=== PATIENT | female | born 1935 | race Caucasian/White ===

== ENCOUNTER 2016-09-17 12:41 | Outpatient (CLI) | payer OTHER ==
[2016-09-17 12:51] LABS: BASOPHILS % (AUTO) 0.7 % (0.0-3.0); EOSINOPHILS # (AUTO) 0.3 K/ul (0.0-0.7); HEMATOCRIT 33.5 % (37.0-47.0); HEMOGLOBIN 10.5 g/dl (12.0-16.0); IMMATURE GRANULOCYTE % (AUTO) 0.3 % (0.0-5.0); LYMPHOCYTES # (AUTO) 1.8 K/uL (0.60-3.4); MEAN CORPUSCULAR HEMOGLOBIN 24.5 pg (27.0-31.0); MEAN CORPUSCULAR HGB CONC 31.3 (31.8-35.4); MEAN CORPUSCULAR VOLUME 78.1 fl (81.0-99.0); MONOCYTES # (AUTO) 0.6 K/uL (0.4-2.0); MONOCYTES % (AUTO) 10.3 (0-10); NEUTROPHILS # (AUTO) 3.3 K/ul (2.0-6.9); NEUTROPHILS % (AUTO) 54.7; PLATELET COUNT 404 10^3/uL (140-440); RED BLOOD COUNT 4.29 10^6/ul (4.20-5.40); WHITE BLOOD COUNT 6.03 K/ul (4.6-10.2)
[2016-09-17 13:14] LABS: ANION GAP 13.7; BUN/CREATININE RATIO 12.5; CREATININE 0.64 mg/dL (0.60-1.30); POTASSIUM 3.7 mmol/L (3.5-5.10)
== END 2016-09-17 12:42 | disposition home or self-care (01) ==
LOC: NONPT 12:41
PROVIDERS: ATTEND Family Medicine
DX: D64.9 Anemia, unspecified (principal); Z01.812 Encounter for preprocedural laboratory examination
CPT/HCPCS: 80048; 85025

== ENCOUNTER 2016-09-17 15:36 | Outpatient (CLI) | payer OTHER ==
--- NOTE | 2016-09-17 16:43 | DI ---
EXAM: Chest one view HISTORY: Surgical clearance COMPARISON: Ninth TECHNIQUE: Single view of the chest was performed FINDINGS: There is lucency at the right hemidiaphragm, may represent free air versus colonic interpo sition. The lungs are clear. There is no pleural effusion or pneumothorax. The heart is mildly enl arged and unchanged in size. The mediastinal contour is normal, noting atherosclerosis. There are no acute abnormalities of the bones. There is a chronic fracture deformity left humerus. IMPRESSION: 1. Possible free air versus colonic interposition. Recommend CT abdomen pelvis for further evaluat ion. 2. No acute cardiopulmonary process . 3. Fracture deformity left proximal humerus. Critical finding called to nurse Roman working with physician assistant Rizzo 4:35 p.m. 7
--- NOTE | 2016-09-18 06:41 | CT ---
EXAM: CT abdomen pelvis without intravenous contrast 09/17/2016. Sagittal and coronal reformatted images obtained. HISTORY: Possible free air COMPARISON: 09/17/2016 FINDINGS: The colon is located anterior to the superior aspect of the liver. This likely accounts for the abnormal finding on same day chest radiograph. There is no free air. The liver shows no acute abnormality. Multiple gallstones. The adrenal glands, kidneys and pancrea s show no acute process. The spleen shows no acute abnormality. There is no evidence of bowel obstruction. Unremarkable urinary bladder. No free air or free fluid. Atherosclerotic vascular disease. There are multiple severe compression fractures of the spine. Severe compression fracture is presen t at L3, L2, L1 and T11. No prior study for comparison. IMPRESSION: 1. The colon is located anterior to the liver and extends along the undersurface of the diaphragm. This likely accounts for the abnormal appearance on same day radiographs. There is no free air. 2. Gallstones. 3. No urinary or bowel obstruction. 4. Atherosclerotic vascular disease. 5. Multiple severe compression fractures of the lower thoracic and lumbar spine. No prior study fo r comparison. Further spinal imaging may be obtained as clinically indicated.
== END 2016-09-17 15:37 | disposition home or self-care (01) ==
LOC: RAD 15:36
PROVIDERS: ATTEND Family Medicine
DX: Z01.810 Encounter for preprocedural cardiovascular examination (principal); Z01.818 Encounter for other preprocedural examination; D64.9 Anemia, unspecified; Z01.812 Encounter for preprocedural laboratory examination
CPT/HCPCS: 80048; 85025; 93005; 93010

== ENCOUNTER 2017-05-18 00:44 | Emergency (ER) ==
[2017-05-18 00:58] VITALS: TEMP 97.7; BMI 24.4
--- NOTE | 2017-05-18 02:37 | CT ---
EXAM: CT head without contrast 05/18/2017. Sagittal and coronal reformatted images obtained HISTORY: Fall COMPARISON: 09/11/2016 FINDINGS: There is no evidence of intracranial hemorrhage. The midline is maintained. There is no h ydrocephalus. Generalized atrophy. Chronic small vessel ischemic changes. No cerebellar tonsillar ectopia. Evaluation of the calvarium shows no fracture. The mastoid air cells are normally pneumati zed. IMPRESSION: No acute intracranial abnormality.
--- NOTE | 2017-05-18 03:02 | DI ---
EXAM: Left shoulder, three views, 05/18/2017 HISTORY: Fall COMPARISON: 05/04/2016 FINDINGS / IMPRESSION: Old healed fractures present at the level of the humeral neck. Side plate and screw device is present within the distal humerus. The glenohumeral and acromioclavicular joint align normally. There is no evidence of acute fracture or dislocation.
--- NOTE | 2017-05-18 03:17 | CT ---
EXAM: CT cervical spine without intravenous contrast 05/18/2017. Sagittal and coronal reformatted i mages obtained HISTORY: Fall COMPARISON: 08/19/2014 FINDINGS: Abnormal alignment is present at the superior most aspect of the cervical spine most likel y due to suboptimal patient positioning. The head is rotated. Vertebral bodies of the cervical spine appear intact. There is no evidence of acute fracture or disl ocation. Multilevel chronic degenerative disc disease most severe at C4-C5. Anterior and posterior osteophyte formation is present. The facet joints align normally. The prevertebral soft tissues appear within normal limits. IMPRESSION: Abnormal alignment at the C1-C2 level is likely due to suboptimal positioning. The head is rotated. No acute fracture or dislocation identified within the cervical spine.
--- NOTE | 2017-05-18 03:45 | CT ---
EXAM: CT chest without intravenous contrast 05/18/2017. Sagittal and coronal reformatted images obt ained HISTORY: Fall COMPARISON: 09/17/2016, 05/18/2017, 09/17/2016 FINDINGS: The heart size appears at the upper limits of normal. No pericardial effusion. Multifocal bilateral atelectasis. There is no pulmonary consolidation, effusion or pneumothorax. Gallstones. There are multiple fractures within the thoracic and lumbar spine. As compared to abdominal CT 09/17 compression fractures of L3, L2, L1 and T11 appear stable. There is a compression fracture of T8 which appears new. Approximately 30% loss of vertebral body height. IMPRESSION: 1. Multifocal atelectasis. 2. Stable partial compression fractures of T11, L1, L2 and L3. 3. New compression fracture of T8 as compared to examination performed 09/17/2016. Approximately 30 % loss of vertebral body height.
--- NOTE | 2017-05-18 03:48 | ED.PDOC ---
General ED Provider: Dr. SHERICE OWENS-ER Chief Complaint: Fall Stated Complaint: found in floor at n.h. Time Seen by Physician: 00:50 Mode of Arrival: Ambulance Information Source: Patient, Family, Intermediate, EMT Exam Limitations: No limitations Primary Care Provider: KRISH TRIANA Nursing and Triage Documentation Reviewed and Agree: Yes Musculoskeletal Complaint Exam - Back Pain Complaint/Exam Mechanism of Injury: Reports: Trauma Onset/Duration: unknown Symptoms Are: Resolved Initial Severity: Mild Current Severity: Mild Character: Reports: Dull, Aching Associated Signs and Symptoms: Denies: Swelling, Redness, Bruising, Fever, Weakness, Numbness, Tingling, Abdominal pain, Flank pain, Bladder incontinence, Bowel incontinence, Weight loss, Pain with weight bearing Related History: Reports: Previous back injury AAA Risk Factors: Reports: None Cauda Equina Risk Factors: Reports: Bowel dysfunction Epidural Abcess Risk Factors: Reports: None Focal Tenderness: No Paraspinal Muscle Tenderness: No Paraspinal Muscle Spasm: No Scoliosis: No Lordosis: No Kyphosis: No SLR Test: Right Negative, Left Negative Hip Motion Testing Pain: Right Negative, Left Negative Focal Weakness: Present: None Focal Sensory Loss: Present: None Gait: Present: Normal Differential Diagnoses: Fracture, Herniated Disk, Strain, Sprain Review of Systems - Review Of Systems Constitutional: Reports: No symptoms Eyes: Reports: No symptoms Ears, Nose, Mouth, Throat: Reports: No symptoms Respiratory: Reports: No symptoms Cardiac: Reports: No symptoms GI: Reports: No symptoms : Reports: No symptoms Musculoskeletal: Reports: Back pain Skin: Reports: No symptoms Neurological: Reports: No symptoms Endocrine: Reports: No symptoms Hematologic/Lymphatic: Reports: No symptoms All Other Systems: Reviewed and Negative Past Medical History - Past Medical History Previously Healthy: No Endocrine: Reports: Unknown Cardiovascular: Reports: Unknown Respiratory: Reports: Unknown Hematological: Reports: Unknown Gastrointestinal: Reports: Unknown Genitourinary: Reports: Unknown Neuro/Psych: Reports: Unknown Musculoskeletal: Reports: Unknown Cancer: Reports: Unknown Last Menstrual Period: UNKNOWN - Surgical History General Surgical History: Reports: Unknown - Family History Family History: Reports: Unknown - Social History Smoking Status: Unknown if ever smoked Hx Substance Use: No Alcohol Screening: None Lives: With family - Immunizations Tetanus Shot up to Date: (UNKNOWN) Physical Exam - Physical Exam Appearance: Well-appearing, No pain distress, Well-nourished Pain Distress: Mild Eyes: MARTINA, EOMI, Conjunctiva clear ENT: Ears normal, Nose normal, Oropharynx normal Neck: Supple Respiratory: Airway patent, Breath sounds clear, Breath sounds equal, Respirations nonlabored Cardiovascular: RRR GI/: Soft, Nontender, No masses, Bowel sounds normal, No Organomegaly Musculoskeletal: Normal strength, ROM intact, No edema, No calf tenderness Skin: Warm Neurological: Sensation intact Psychiatric: Affect appropriate, Mood appropriate Critical Care Note - Critical Care Note Total Time (mins): 0 Course - Course Orders, Labs, Meds: Orders Category Date Time Status CT CERVICAL SPINE W/O CONTRAST Stat RADS 05/18/17 00:[address] CHEST W/O CONTRAST Stat RADS 05/18/17 00:[address] HEAD W/O CONTRAST Stat RADS 05/18/17 00:[address] LUMBAR SPINE W/O CONTRAST Stat RADS 05/18/17 00:[address] PELVIS W/O CONTRAST Stat RADS 05/18/17 00:[address] THORACIC SPINE W/O CONTRAST Stat RADS 05/18/17 00:46 Completed SHOULDER, LEFT MIN 2V Stat RADS 05/18/17 00:48 Completed Vital Signs: Temp Pulse Resp BP Pulse Ox 05/18/17 04:32 92 H 20 115/65 95 05/18/17 00:45 97.7 F 104 H 24 153/84 H 95 Departure - Departure Time of Disposition: 04:15 Disposition: TRANSFER SNF Discharge Problem: Multiple transverse process fractures Traumatic compression fracture of T8 thoracic vertebra Qualifiers: Encounter type: initial encounter Fracture type: closed Qualified Code(s): S22.060A - Wedge compression fracture of T7-T8 vertebra, initial encounter for closed fracture Instructions: Vertebral Compression Fracture (ED) Condition: Stable Pt referred to PMD for follow-up: Yes Additional Instructions: norco 7.5mg q 4hrs prn pain#30---hyperextension brace when awake--consider kyphoplasty if not tolerates Allergies/Adverse Reactions: Allergies Bleach (Sodium Hypochlorite) Adverse Reaction (Verified 05/18/17 02:27) orange juice Adverse Reaction (Verified 05/18/17 02:27) Penicillins Adverse Reaction (Verified 05/18/17 02:27) Home Medications: Ambulatory Orders Acetaminophen [Tylenol Extra Strength] 1,000 mg PO Q6H PRN 05/18/17 Albuterol Sulfate 0.083% Neb [Albuterol 0.083% Neb] 1 vial NEB RTQ6H PRN Calcium Carbonate [Tums] 200 mg PO Q4H PRN 05/18/17 Citalopram Hydrobromide [Celexa] 10 mg PO BEDTIME 05/18/17 Clonidine HCl 0.1 mg PO BID 05/18/17 Cyclobenzaprine HCl 5 mg PO Q8H PRN 05/18/17 Diltiazem HCl [Diltiazem 24Hr Cd] 180 mg PO DAILY 05/18/17 Ferrous Sulfate 325 mg PO BID 05/18/17 Furosemide 20 mg PO DAILY 05/18/17 Hydrocodone/Acetaminophen [Hydrocodon-Acetaminophen 5-325] 1 each PO Q4H PRN Magnesium Hydroxide [Milk of Magnesia] 30 ml PO DAILY PRN 05/18/17 Potassium Chloride 20 meq PO DAILY 05/18/17 Ranitidine HCl [Zantac] 150 mg PO BIDAC 05/18/17 Sennosides/Docusate Sodium [Senna-S Tablet] 1 each PO DAILY 05/18/17 Transfer Form Completed: Yes Disposition Discussed With: Family
--- NOTE | 2017-05-18 03:49 | CT ---
EXAM: CT thoracic spine without intravenous contrast 05/18/2017. Sagittal and coronal reformatted i mages obtained HISTORY: Fall COMPARISON: 05/18/2017, 09/17/2016 FINDINGS: There are multiple chronic fractures within the lower thoracic and lumbar spine. Chronic s table fractures are present at T11, L1, L2 and L3. As compared to the prior CT performed 09/17/2016 there is a new fracture at the T8 level. Jagged debbie ency traverses the level of T8. Approximately 30% loss of vertebral body height. No retropulsed bon y fragments. Posterior elements appear intact. IMPRESSION: 1. New partial compression fracture of T8. This is new as compared to 09/17/2016. Approximately 30 % loss of vertebral body height. 2. Additional chronic fracture sites as described above.
--- NOTE | 2017-05-18 04:11 | CT ---
EXAM: CT lumbar spine without intravenous contrast 05/18/2017. Sagittal and coronal reformatted orion ges obtained HISTORY: Fall COMPARISON: 09/17/2016 FINDINGS: Anatomic alignment is unchanged. Partial loss of vertebral body height is present within a ll lumbar vertebral bodies. Severe compression fractures are present at L1, L2 and L3. These fractu re sites all appear unchanged as compared to abdominal CT performed 09/17/2016. Nondisplaced fracture is present within the right transverse process of L2, L3 and L4. These finding s are new since the prior study. There is no new lumbar fracture identified. Chronic degenerative disc disease. Chronic multilevel h ypertrophic facet arthropathy. Severe compression fracture at T11 is also stable. There is a new compression fracture T8. IMPRESSION: 1. Multiple severe compression fractures of the thoracic and lumbar spine. Compression fracture of the L1, L2 and L3 vertebral bodies appear stable. 2. There are new nondisplaced transverse process fractures at the right aspect of L2, L3 and L4. 3. There is also a new compression fracture of T8 which has been described on same day CT thoracic s pine.
--- NOTE | 2017-05-18 04:13 | CT ---
EXAM: CT pelvis without intravenous contrast 05/18/2017. Sagittal and coronal reformatted images ob tained HISTORY: 09/17/2016 COMPARISON: Fall FINDINGS: The osseous structures of the pelvis appear demineralized. The sacrum appears intact with out fracture. The bony pelvis appears intact without evidence of fracture. The right and left hip align normally. The proximal femurs appear intact. IMPRESSION: No acute post traumatic osseous abnormality of the pelvis.
[2017-05-18 04:33] VITALS: BP 115/65
== END 2017-05-18 04:35 ==
LOC: ED 00:44
DX: S22.060A Wedge compression fracture of T7-T8 vertebra, initial encounter for closed fracture (principal); S32.029A Unspecified fracture of second lumbar vertebra, initial encounter for closed fracture; S32.039A Unspecified fracture of third lumbar vertebra, initial encounter for closed fracture; S32.049A Unspecified fracture of fourth lumbar vertebra, initial encounter for closed fracture; M25.512 Pain in left shoulder; F03.90 Unspecified dementia, unspecified severity, without behavioral disturbance, psychotic disturbance, mood disturbance, and anxiety; S32.010D Wedge compression fracture of first lumbar vertebra, subsequent encounter for fracture with routine healing; S32.020D Wedge compression fracture of second lumbar vertebra, subsequent encounter for fracture with routine healing; S32.030D Wedge compression fracture of third lumbar vertebra, subsequent encounter for fracture with routine healing; S22.080D Wedge compression fracture of T11-T12 vertebra, subsequent encounter for fracture with routine healing; W19.XXXA Unspecified fall, initial encounter; Y92.129 Unspecified place in nursing home as the place of occurrence of the external cause; Z79.899 Other long term (current) drug therapy
CPT/HCPCS: 99283

== ENCOUNTER 2017-05-23 21:39 | Emergency (ER) ==
[2017-05-23 21:39] VITALS: BMI 24.4
[2017-05-23 21:46] VITALS: BP 139/73; TEMP 98.3
--- NOTE | 2017-05-23 22:03 | ED.PDOC ---
General ED Provider: Dr. NOLA VELAZQUEZ Chief Complaint: Fall Stated Complaint: Patient has had multiple falls recently with fracture of the spine. Has a brace that she wears. Today went to get up and fell again. Now complain of lower back pain. Happened an hour ago. Time Seen by Physician: 22:02 Mode of Arrival: Ambulance Information Source: Patient, EMT Exam Limitations: No limitations Nursing and Triage Documentation Reviewed and Agree: Yes Trauma/Injury Complaint Exam - Trauma Complaint/Exam Location of Pain or Injury: Reports: Back Mechanism of Injury: Reports: Fall Onset/Duration: 1 hour Symptoms Are: Still present Timing of Treatment: Immediate Initial Severity: Mild Current Severity: Moderate Character: Reports: Aching Aggravating: Reports: Movement Associated Signs and Symptoms: Denies: LOC, Confusion, Memory loss, Lethargy, Vomiting, Bleeding, Bruising, Swelling, Extremity disuse, Painful respiration, Hoarseness, Dysphagia, Hemoptysis, Significant blood loss Nexus Low Risk Criteria: No post-midline CS tender, No evidence of intoxicat., No Altered LOC, No focal neuro deficit, No distracting injuries Trauma Findings: Present: Back tenderness (lumbar area ), Limited ROM. Absent: [place] eyes, Hemotympanum, Nasal deformity, Dental tenderness, Dental injury, SubQ Air, Crepitus, Airway obstructed, Trachea displaced, Pelvic tenderness Skin Findings: Present: Normal findings Differential Diagnoses: Fracture, Sprain, Strain Body Picture: 1 - tendermess to palpation. Review of Systems - Review Of Systems Constitutional: Reports: No symptoms Musculoskeletal: Reports: Back pain, Muscle pain, Muscle stiffness Neurological: Reports: Anxiety All Other Systems: Other (limited due to dementia) Past Medical History - Past Medical History Previously Healthy: No Endocrine: Reports: None Cardiovascular: Reports: Hypertension Respiratory: Reports: None Hematological: Reports: None Gastrointestinal: Reports: GERD Genitourinary: Reports: None Neuro/Psych: Reports: Schizophrenia, Dementia, Other (OCD ) Musculoskeletal: Reports: Arthritis, Back Pain Cancer: Reports: Unknown Last Menstrual Period: unknown - Surgical History General Surgical History: Reports: Unknown - Family History Family History: Reports: Unknown - Social History Smoking Status: Unknown if ever smoked Hx Substance Use: No Alcohol Screening: None - Immunizations Tetanus Shot up to Date: Yes Physical Exam - Physical Exam Appearance: Ill-appearing, Well-nourished Ill-appearing: Mild Pain Distress: Severe Eyes: MARTINA, EOMI, Conjunctiva clear ENT: Ears normal, Nose normal, Oropharynx normal Neck: Supple Respiratory: Airway patent, Breath sounds clear, Breath sounds equal, Respirations nonlabored Cardiovascular: RRR, Pulses normal, No rub, No murmur GI/: Soft, Nontender, No masses, Bowel sounds normal, No Organomegaly Musculoskeletal: Normal strength, No edema, No calf tenderness, Limited ROM Skin: Warm, Dry, Normal color Neurological: Sensation intact, Motor intact, Reflexes intact, Cranial nerves intact, Alert, Oriented Psychiatric: Affect appropriate, Mood appropriate Interpretation - Radiology Interpretation Radiology Interpretation By: Radiologist Radiology Results: No acute changes (stable fractures) Exam Interpreted: CT Scan Critical Care Note - Critical Care Note Total Time (mins): 0 Course - Course Orders, Labs, Meds: Orders Category Date Time Status Morphine Sulfate [Morphine 2 mg/ml Syringe] MEDS 05/23/17 22:23 Discontinued 2 mg IM ONCE STA Ondansetron [Zofran Odt] MEDS 05/23/17 22:23 Discontinued 4 mg PO ONCE STA CT CERVICAL SPINE W/O CONTRAST Stat RADS 05/23/17 21:[address] HEAD W/O CONTRAST Stat RADS 05/23/17 21:[address] LUMBAR SPINE W/O CONTRAST Stat RADS 05/23/17 21:[address] PELVIS W/O CONTRAST Stat RADS 05/23/17 21:[address] THORACIC SPINE W/O CONTRAST Stat RADS 05/23/17 21:42 Completed Medications Discontinued Medications Generic Name Dose Route Start Last Admin Trade Name Freq PRN Reason Stop Dose Admin Morphine Sulfate 2 mg 05/23/17 22:23 05/23/17 22:34 Morphine 2 Mg/Ml Syringe IM 05/23/17 22:24 2 mg ONCE STA Administration Ondansetron HCl 4 mg 05/23/17 22:23 05/23/17 22:34 Zofran Odt PO 05/23/17 22:24 4 mg ONCE STA Administration Vital Signs: Temp Pulse Resp BP Pulse Ox 05/23/17 21:39 98.3 F 105 H 20 139/73 95 Departure - Departure Time of Disposition: 22:59 Disposition: HOME SELF-CARE Discharge Problem: Falls, Back pain due to injury Instructions: Acute Low Back Pain (ED), Back Pain (ED) Condition: Fair Pt referred to PMD for follow-up: Yes Additional Instructions: Continue home medications for pain Follow up with PCPin 3 days Allergies/Adverse Reactions: Allergies Bleach (Sodium Hypochlorite) Adverse Reaction (Verified 05/23/17 21:47) orange juice Adverse Reaction (Verified 05/23/17 21:47) Penicillins Adverse Reaction (Verified 05/23/17 21:47) Home Medications: Ambulatory Orders Acetaminophen [Tylenol Extra Strength] 1,000 mg PO Q6H PRN 05/18/17 Albuterol Sulfate 0.083% Neb [Albuterol 0.083% Neb] 1 vial NEB RTQ6H PRN Calcium Carbonate [Tums] 200 mg PO Q4H PRN 05/18/17 Citalopram Hydrobromide [Celexa] 10 mg PO BEDTIME 05/18/17 Clonidine HCl 0.1 mg PO BID 05/18/17 Cyclobenzaprine HCl 5 mg PO BID 05/18/17 Diltiazem HCl [Diltiazem 24Hr Cd] 180 mg PO DAILY 05/18/17 Ferrous Sulfate 325 mg PO BID 05/18/17 Furosemide 20 mg PO DAILY 05/18/17 Hydrocodone/Acetaminophen [Hydrocodon-Acetaminophen 5-325] 1 each PO Q4H PRN Magnesium Hydroxide [Milk of Magnesia] 30 ml PO DAILY PRN 05/18/17 Potassium Chloride 20 meq PO DAILY 05/18/17 Ranitidine HCl [Zantac] 150 mg PO BIDAC 05/18/17 Sennosides/Docusate Sodium [Senna-S Tablet] 1 each PO DAILY 05/18/17
[2017-05-23] MEDS ORDERED: ZOFRAN ODT PO STA (22:23)
[2017-05-23] MEDS ORDERED: MORPHINE 2 MG/ML SYRINGE IM STA (22:23)
--- NOTE | 2017-05-23 22:31 | CT ---
EXAM: CT brain without contrast HISTORY: Fall with injury and pain TECHNIQUE: CT of the brain without intravenous contrast FINDINGS: There is no acute hemorrhage midline shift or mass effect. No hydrocephalus or abnormal e xtra-axial fluid collection. Generalized involutional atrophy, moderate. Chronic microvascular pelayo ges white matter tracts, moderate. No acute large vessel territorial infarct is seen. The bony cran ium appears normal. The visualized paranasal sinuses are clear. Soft tissues without significant abno rmality. IMPRESSION: 1. Chronic changes as described. No acute intracranial abnormality is seen.
--- NOTE | 2017-05-23 22:32 | CT ---
CT cervical spine without contrast HISTORY: Fall with injury and pain TECHNIQUE: CT of the cervical spine with multiplanar reformations. FINDINGS: Reformatted images demonstrate normal alignment with preservation of vertebral body height . Focal disc space narrowing and endplate spondylosis at C4-5. No fracture seen on the axial or refo rmatted images. No acute surrounding soft tissue abnormalitites. Lung apices are clear. IMPRESSION: No acute findings in the cervical spine.
--- NOTE | 2017-05-23 22:44 | CT ---
EXAM: CT scan thoracic spine HISTORY: Fall COMPARISON: CT scan thoracic spine 05/18/2017 FINDINGS: Contiguous axial images obtained through the thoracic spine utilizing 3-mm collimation. S agittal and coronal reconstructions were imaged and reviewed.. There is moderate generalized deminer alization. Chronic compression deformities are noted at T11 , L1, L2 and L3. There is an acute/subac [place] fracture involving the T8 vertebral body IMPRESSION: Stable acute compression deformity involving T8 with multiple chronic compression deformities as desc ribed
--- NOTE | 2017-05-23 22:47 | CT ---
Exam: CT lumbar spine without contrast History: Fall with injury and pain Technique: [address] lumbar spine with multiplanar reformations FINDINGS: Compared with 05/18/2017. Again, multilevel high-grade compression fractures and T11, L1, L2, L3. Low grade compression fracture of L5. Transverse process fractures of L1, L2 and L3 again noted. The sacrum is intact. The bones are demineralized. Impression: 1. No interval change from 05/18/2017. High-grade compression fractures of L1, L2 and L3. Stable L 3 retropulsion. No new fractures.
--- NOTE | 2017-05-23 22:48 | CT ---
EXAM: CT scan pelvis without contrast HISTORY: Fall COMPARISON: CT scan pelvis 05/18/2016 FINDINGS: Contiguous axial images were obtained through the pelvis without contrast utilizing 3-mm c ollimation. Sagittal and coronal reconstructions were imaged and reviewed... The hip joints and SI joints are intact. There is no acute fracture or dislocation. There is a Barry catheter in the bladde r which contains air which is likely iatrogenic in nature. IMPRESSION: No acute findings.
== END 2017-05-23 23:58 | disposition home or self-care (01) ==
LOC: ED 21:39
DX: R29.6 Repeated falls (principal); M54.5 Low back pain; W19.XXXA Unspecified fall, initial encounter; S22.069D Unspecified fracture of T7-T8 vertebra, subsequent encounter for fracture with routine healing; M81.0 Age-related osteoporosis without current pathological fracture; F03.90 Unspecified dementia, unspecified severity, without behavioral disturbance, psychotic disturbance, mood disturbance, and anxiety
CPT/HCPCS: 96372; 99283

== ENCOUNTER 2017-07-17 13:23 | Outpatient (CLI) ==
[2017-07-17 13:40] LABS: BILIRUBIN,URINE Negative (NEGATIVE); KETONES,URINE Negative (NEGATIVE); LEUKOCYTE ESTERASE ,URINE 3+ (NEGATIVE); NITRITE,URINE Negative (NEGATIVE); PH,URINE 7.5 (5-9); PROTEIN,URINE Negative (NEGATIVE); URINE, BLOOD Negative (NEGATIVE)
[2017-07-17 14:00] LABS: ADD URINE MICROSCOPIC YES
[2017-07-17 14:04] LABS: BACTERIA,URINE 1+ (NOT PRESENT)
== END 2017-07-17 13:24 | disposition home or self-care (01) ==
LOC: NONPT 13:23
PROVIDERS: ATTEND Family Medicine
DX: R69 Illness, unspecified (principal)
CPT/HCPCS: 81001; 87086

== ENCOUNTER 2017-07-19 13:40 | Outpatient (CLI) ==
--- NOTE | 2017-07-19 14:36 | CT ---
Exam: CT of the cervical spine without intravenous contrast. Comparison: 05/23/2017. Reason for exam: Increased pain. FINDINGS: Linear lucency through the base of the C2 vertebral body likely represents a type 3 dens f racture. There is a fractures of the posterior arch of C2 consistent with a hangman's fracture. There is similar appearing degenerative disease with intervertebral body disc space height narrowing most notably at C4-C5. There is similar appearing straightening of the cervical lordotic curve. The prev ertebral soft tissues are within normal limits. There is diffuse osseous demineralization. Impression: 1. Unexpected finding. Imaging findings are most consistent with a type 3 dens fracture and a hangm an's fracture. 2. Moderate to severe degenerative disease with intervertebral body disc space height narrowing and diffuse osseous demineralization. Imaging findings were discussed directly with at at 1430 hours on 07/19/2017. The report was faxed at the same time.
== END 2017-07-19 13:41 | disposition home or self-care (01) ==
LOC: RAD 13:40
PROVIDERS: ATTEND Family Medicine
DX: M54.2 Cervicalgia (principal)

== ENCOUNTER 2017-11-07 12:04 | Outpatient (CLI) | END 2017-11-07 12:05 | disposition short-term general hospital (02) | LOC: AMBL 12:04 | PROVIDERS: ATTEND Emergency Medicine | DX: S49.92XA Unspecified injury of left shoulder and upper arm, initial encounter (principal); W19.XXXA Unspecified fall, initial encounter; Y92.129 Unspecified place in nursing home as the place of occurrence of the external cause ==

== ENCOUNTER 2017-11-15 11:56 | Outpatient (CLI) | END 2017-11-15 11:57 | disposition home or self-care (01) | LOC: NONPT 11:56 | PROVIDERS: ATTEND Family Medicine | DX: R05 Cough (principal); R68.89 Other general symptoms and signs | CPT/HCPCS: 87502 ==

== ENCOUNTER 2017-12-21 19:43 | Emergency (ER) | payer OTHER ==
[2017-12-21 20:10] VITALS: BP 148/72; TEMP 98; BMI 22.9
--- NOTE | 2017-12-21 20:16 | ED.PDOC ---
General ED Provider: Dr. JEOVANNY SUE Chief Complaint: Fall Stated Complaint: sent from the [place] for the fall and injuring head and neck, on the bed, does not c/o pain in heack or head. Time Seen by Physician: 20:15 Information Source: Patient, Family, Senior Care, EMT Nursing and Triage Documentation Reviewed and Agree: Yes Reviewed sepsis parameters & appropriate labs ordered?: No System Inflammatory Response Syndrome: Not Applicable Sepsis Protocol: For patient's 13 years and over: Temp is 96.8 and below OR 101 and greater Pulse >90 BPM Resp >20/minute Acutely Altered Mental Status Are patient's symptoms suggestive of a new infection, such as: -Pneumonia -Skin, Soft Tissue -Endocarditis -UTI -Bone, Joint Infection -Implantable Device -Acute Abdominal Infection -Wound Infection -Meningitis -Blood Stream Catheter Infection -Unknown Musculoskeletal Complaint Exam - Neck Pain Complaint/Exam Mechanism of Injury: Reports: Trauma Symptoms Are: Still present Timing: Constant Episodes Lasting: Minutes Initial Severity: Moderate Current Severity: Moderate Location: Reports: Discrete Character: Reports: Aching, Throbbing Aggravating: Reports: Movement Alleviating: Reports: None Associated Signs and Symptoms: Denies: Swelling, Redness, Bruising, Fever, Nuchal rigidity, Weakness, Headache, Paresthesia Related History: Reports: Similar episode Meningitis Risk Factors: Reports: None Cervical Spine Injury Risk Factors: Reports: None Related Surgical History: Reports: None Carotid Bruit Present: No Pain on Passive Flexion: No Positive Kernig's Sign: No ROM Limited In: Present: Flexion, Extension Tenderness: Present: Midline, Paraspinal Focal Weakness: Present: None Focal Sensory Loss: Reports: None Differential Diagnoses: Cervical Fracture, Intracranial Bleed, Sprain Review of Systems - Review Of Systems Constitutional: Reports: No symptoms Eyes: Reports: No symptoms Ears, Nose, Mouth, Throat: Reports: No symptoms Respiratory: Reports: No symptoms Cardiac: Reports: No symptoms GI: Reports: No symptoms : Reports: No symptoms Musculoskeletal: Reports: Neck pain Skin: Reports: No symptoms Neurological: Reports: Headache Endocrine: Reports: No symptoms Hematologic/Lymphatic: Reports: No symptoms All Other Systems: Reviewed and Negative Past Medical History - Past Medical History Previously Healthy: No Endocrine: Reports: None Cardiovascular: Reports: Hypertension Respiratory: Reports: None Hematological: Reports: None Gastrointestinal: Reports: GERD Genitourinary: Reports: None Neuro/Psych: Reports: Schizophrenia, Dementia, Other (OCD ) Musculoskeletal: Reports: Arthritis, Back Pain Cancer: Reports: Unknown Last Menstrual Period: UNKNOWN Other Pertinent Past Medical History: OCD,OSTEOARTHRITIS,DEMENTIA,DYSPHAGIA, CHRONIC BACK ISSUES, - Surgical History General Surgical History: Reports: Unknown - Family History Family History: Reports: Unknown - Social History Smoking Status: Unknown if ever smoked Hx Substance Use: No Alcohol Screening: None Physical Exam - Physical Exam Appearance: Well-appearing Eyes: MARTINA, EOMI, Conjunctiva clear ENT: Ears normal, Nose normal, Oropharynx normal Respiratory: Airway patent, Breath sounds clear, Breath sounds equal, Respirations nonlabored Cardiovascular: RRR, Pulses normal, No rub, No murmur GI/: Soft, Nontender, No masses, Bowel sounds normal, No Organomegaly Musculoskeletal: ROM intact, No edema, No calf tenderness, Limited ROM Skin: Warm, Dry, Normal color Neurological: Sensation intact, Motor intact, Reflexes intact, Cranial nerves intact, Alert, Oriented Psychiatric: Affect appropriate, Mood appropriate Interpretation - Radiology Interpretation Radiology Interpretation By: Radiologist Radiology Results: Positive (CHRONIC CAHNGES) Exam Interpreted: CT Scan Critical Care Note - Critical Care Note Total Time (mins): 25 Course - Course Orders, Labs, Meds: Orders Category Date Time Status CT CERVICAL SPINE W/O CONTRAST Stat RADS 12/21/17 20:[address] HEAD W/O CONTRAST Stat RADS 12/21/17 20:13 Completed Vital Signs: Temp Pulse Resp BP Pulse Ox 12/21/17 19:48 98 F 74 20 148/72 H 98 Departure - Departure Time of Disposition: 21:13 Disposition: HOME SELF-CARE Discharge Problem: Fracture of C2 vertebra, closed Qualifiers: Encounter type: subsequent encounter Fracture morphology: unspecified fracture morphology Fracture alignment: nondisplaced Fracture healing: with delayed healing Qualified Code(s): S12.101G - Unspecified nondisplaced fracture of second cervical vertebra, subsequent encounter for fracture with delayed healing Instructions: Fall Prevention for Older Adults (ED) Condition: Stable Pt referred to PMD for follow-up: Yes IPMP verified?: No Additional Instructions: Patient has high risk for the falls. f/u at [facility] rounds Allergies/Adverse Reactions: Allergies Bleach (Sodium Hypochlorite) Adverse Reaction (Verified 12/21/17 20:10) orange juice Adverse Reaction (Verified 12/21/17 20:10) Penicillins Adverse Reaction (Verified 12/21/17 20:10) Home Medications: Ambulatory Orders Acetaminophen [Tylenol Extra Strength] 1,000 mg PO Q6H PRN 05/18/17 Albuterol Sulfate 0.083% Neb [Albuterol 0.083% Neb] 1 vial NEB RTQ6H PRN Calcium Carbonate [Tums] 200 mg PO Q4H PRN 05/18/17 Citalopram Hydrobromide [Celexa] 10 mg PO BEDTIME 05/18/17 Clonidine HCl 0.1 mg PO BID 05/18/17 Cyclobenzaprine HCl 5 mg PO Q12H PRN 05/18/17 Diltiazem HCl [Diltiazem 24Hr Cd] 180 mg PO DAILY 05/18/17 Ferrous Sulfate 325 mg PO BID 05/18/17 Furosemide 20 mg PO BID 05/18/17 Magnesium Hydroxide [Milk of Magnesia] 30 ml PO DAILY PRN 05/18/17 Potassium Chloride 20 meq PO DAILY 05/18/17 Ranitidine HCl [Zantac] 150 mg PO BIDAC 05/18/17 Sennosides/Docusate Sodium [Senna-S Tablet] 1 each PO DAILY 05/18/17 Baclofen 10 mg PO Q8H PRN 12/21/17 Guaifenesin 400 mg PO Q12H PRN 12/21/17 Hydrocodone Bit/Acetaminophen [[place] 7.5-325] 1 tab PO Q8H PRN 12/21/17 Disposition Discussed With: Patient, Family
--- NOTE | 2017-12-21 20:51 | CT ---
EXAM: CT of the head without contrast. HISTORY: Fall. Prior CT fracture.. COMPARISON: 07/19/2017 TECHNIQUE: Contiguous axial images at 5 mm intervals were obtained from the base of the skull to the vertex the calvarium. No contrast was given. FINDINGS: The CSF containing spaces are diffusely enlarged consistent with atrophy. There are no ex traaxial fluid collections. There is no evidence of an acute intracranial hemorrhage. There are no masses or mass effect. Hypodensities are seen in the periventricular white matter consistent with ch ronic ischemic changes from small vessel disease. There are no acute vascular territory infarcts. Carotid artery and vertebral artery calcifications are seen. The osseous structures are normal. The re is a lucency through C2 on the right extending through the lateral lateral mass. This is not enti rely imaged on the study but appears similar to the previous study dated 07/19/2017 The extracranial soft tissues are otherwise unremarkable. IMPRESSION: 1. Fracture through the lateral mass on the right at C2 and probable fracture of the left os CT. A similar appearance was seen on CT of the cervical spine dated 07/19/2017. Correlate with CT of the c ervical spine. 2. Chronic age-related changes. No acute intracranial abnormalities.
--- NOTE | 2017-12-21 21:04 | CT ---
Exam. CT of cervical spine without contrast History. Post fall, injury Comparison. 07/19/2017 Technique Axial scans acquired at 2 mm slice thicknesses. MPR coronal and sagittal sequences completed FINDINGS Patient was positioned asymmetrically in the CT gantry Sagittal sequence shows normal alignment of the facet joints and vertebral bodies. There is narrowin g of the C4-C5, C5-C6 intervertebral disc space. The odontoid is intact. However there is a fractur e involving the right body/pedicle of C2. There is an additional fracture involving the left pedicle of C2 C3-C7 vertebra appear intact There is no acute disc protrusion. There is no obvious cord contusion or hematoma. Impression 1. There is a fracture of C2 as described similar compared previous CT of 07/19/2017. Fracture lines are still apparent with nonunion 2. Alignment facet joints and vertebral bodies normal. 3. Degenerate disc disease C4-C5 and the C5-C6 level. There is a moderate right C4-C5 and moderate left C5-C6 foraminal stenosis. If more detailed assessment of neural structures is clinically indicated consider follow-up non emerg ent MRI Results discussed with ER nursing staff Mary . Faxed report sent.
== END 2017-12-21 21:45 | disposition home or self-care (01) ==
LOC: ED 19:43
DX: S09.90XA Unspecified injury of head, initial encounter (principal); S12.101G Unspecified nondisplaced fracture of second cervical vertebra, subsequent encounter for fracture with delayed healing; W19.XXXA Unspecified fall, initial encounter; Y92.129 Unspecified place in nursing home as the place of occurrence of the external cause; M25.512 Pain in left shoulder
CPT/HCPCS: 99283

== ENCOUNTER 2017-12-30 09:29 | Outpatient (CLI) | END 2017-12-30 09:30 | disposition home or self-care (01) | LOC: NONPT 09:29 | PROVIDERS: ATTEND Emergency Medicine | DX: Z51.81 Encounter for therapeutic drug level monitoring (principal); Z79.899 Other long term (current) drug therapy | CPT/HCPCS: 80053 ==

== ENCOUNTER 2018-01-07 13:06 | Inpatient (IN) | payer OTHER ==
--- NOTE | 2018-01-07 14:10 | ED.PDOC ---
General ED Provider: Dr. SHERICE POSEY Chief Complaint: Chest Pain Stated Complaint: Having shoulder pain radiating to the chest. Apparently patient refused and [facility] nurses sent patient in for evaluation per recommendation of Dr Sevilla. Time Seen by Physician: 13:50 Mode of Arrival: Walk-In Information Source: Family, Group Home, EMT Exam Limitations: Clinical condition [facility] and T[facility] Documentation Reviewed and Agree: Yes Reviewed sepsis parameters & appropriate labs ordered?: Yes System Inflammatory Response Syndrome: Not Applicable Sepsis Protocol: For patient's 13 years and over: Temp is 96.8 and below OR 101 and greater Pulse >90 BPM Resp >20/minute Acutely Altered Mental Status Are patient's symptoms suggestive of a new infection, such as: -Pneumonia -Skin, Soft Tissue -Endocarditis -UTI -Bone, Joint Infection -Implantable Device -Acute Abdominal Infection -Wound Infection -Meningitis -Blood Stream Catheter Infection -Unknown System Inflammatory Response Syndrome: Not Applicable Review of Systems - Review Of Systems Constitutional: Reports: No symptoms Eyes: Reports: No symptoms Ears, Nose, Mouth, Throat: Reports: No symptoms Respiratory: Reports: No symptoms Cardiac: Reports: No symptoms GI: Reports: No symptoms : Reports: No symptoms Musculoskeletal: Reports: No symptoms, Joint pain (shoulder pain ) Skin: Reports: No symptoms Neurological: Reports: No symptoms, 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) Endocrine: Reports: No symptoms Hematologic/Lymphatic: Reports: No symptoms All Other Systems: Reviewed and Negative Past Medical History - Past Medical History Previously Healthy: No Endocrine: Reports: None Cardiovascular: Reports: Hypertension Respiratory: Reports: None Hematological: Reports: None Gastrointestinal: Reports: GERD Genitourinary: Reports: None Neuro/Psych: Reports: Schizophrenia, Dementia, Other (OCD ) Musculoskeletal: Reports: Arthritis, Back Pain Cancer: Reports: Unknown Last Menstrual Period: unknown Other Pertinent Past Medical History: OCD,OSTEOARTHRITIS,DEMENTIA,DYSPHAGIA, CHRONIC BACK ISSUES, - Surgical History General Surgical History: Reports: Unknown - Family History Family History: Reports: Unknown - Social History Smoking Status: Former smoker Hx Substance Use: No Alcohol Screening: None Physical Exam - Physical Exam Appearance: Ill-appearing Ill-appearing: Moderate Pain Distress: Mild Eyes: MARTINA, EOMI, Conjunctiva clear ENT: Ears normal, Nose normal, Oropharynx normal Neck: Supple Respiratory: Airway patent, Breath sounds clear, Breath sounds equal, Respirations nonlabored Cardiovascular: RRR, Pulses normal, No rub, No murmur GI/: Soft, Nontender, No masses, Bowel sounds normal, No Organomegaly Skin: Warm, Dry, Normal color Neurological: Sensation intact, Motor intact, Cranial nerves intact, Alert, Oriented Critical Care Note - Critical Care Note Total Time (mins): 30 Course - Course Hematology/Chemistry: 01/07/18 14:30 01/07/18 14:30 Orders, Labs, Meds: Lab Review 01/07/18 01/07/18 01/07/18 14:30 14:30 14:30 WBC 9.19 RBC 4.09 L Hgb 11.9 L Hct 35.4 L MCV 86.6 MCH 29.1 MCHC 33.6 RDW Coeff of Martha 14.3 Plt Count 222 Immature Gran % (Auto) 0.3 Neut % (Auto) 84.1 Lymph % (Auto) 8.8 L Long % (Auto) 6.5 Eos % (Auto) 0.1 Baso % (Auto) 0.2 Immature Gran # (Auto) 0.0 Neut # (Auto) 7.7 H Lymph # (Auto) 0.8 Long # (Auto) 0.6 Eos # (Auto) 0.0 Baso # (Auto) 0.0 Sodium 133 L Potassium 3.8 Chloride 96 L Carbon Dioxide 28 Anion Gap 12.8 BUN 13 Creatinine 0.62 Estimated GFR (MDRD) 92.00 BUN/Creatinine Ratio 20.96 Glucose 114 Lactic Acid 7.3 Calcium 9.7 Total Bilirubin 0.6 AST 25 ALT 14 Alkaline Phosphatase 102 Troponin I < 0.0100 Total Protein 8.0 Albumin 3.4 Globulin 4.6 Albumin/Globulin Ratio 0.74 Influ A Molecular Assay Influ B Molecular Assay 01/07/18 14:30 WBC RBC Hgb Hct MCV MCH MCHC RDW Coeff of Martha Plt Count Immature Gran % (Auto) Neut % (Auto) Lymph % (Auto) Long % (Auto) Eos % (Auto) Baso % (Auto) Immature Gran # (Auto) Neut # (Auto) Lymph # (Auto) Long # (Auto) Eos # (Auto) Baso # (Auto) Sodium Potassium Chloride Carbon Dioxide Anion Gap BUN Creatinine Estimated GFR (MDRD) BUN/Creatinine Ratio Glucose Lactic Acid Calcium Total Bilirubin AST ALT Alkaline Phosphatase Troponin I Total Protein Albumin Globulin Albumin/Globulin Ratio Influ A Molecular Assay Negative by naat Influ B Molecular Assay Negative by naat Orders Category Date Time Status EKG-(ED ONLY) Stat CARDIO 01/07/18 14:13 Completed NEBULIZER TREATMENT Routine CARDIO 01/07/18 16:28 Ordered OXYGEN Routine CARDIO 01/07/18 16:26 Ordered INTAKE & OUTPUT Q8HR CARE 01/07/18 16:26 Active VITAL SIGNS Q4HR CARE 01/07/18 16:24 Active CARDIAC DIET DIETARY 01/07/18 Dinner Ordered BLOOD CULTURE (ED ONLY) Stat LAB 01/07/18 14:30 Received CBC W/ AUTO DIFF DAILY@0600 LAB 01/08/18 06:00 Ordered CBC W/ AUTO DIFF DAILY@0600 LAB 01/09/18 06:00 Ordered CBC W/ AUTO DIFF Stat LAB 01/07/18 14:30 Completed CMP [COMPREHENSIVE METABOLIC PANEL] Stat LAB 01/07/18 14:30 Completed COMPREHENSIVE METABOLIC PANEL DAILY@0600 LAB 01/08/18 06:00 Ordered COMPREHENSIVE METABOLIC PANEL DAILY@0600 LAB 01/09/18 06:00 Ordered CREATINE KINASE Q8H LAB 01/07/18 22:30 Ordered CREATINE KINASE Q8H LAB 01/08/18 06:30 Ordered FLU A & B MOLECULAR [FLU A/B MOLECULAR] Stat LAB 01/07/18 14:30 Completed LACTIC ACID Stat LAB 01/07/18 14:30 Completed TROPONIN I Q8H LAB 01/07/18 22:30 Ordered TROPONIN I Q8H LAB 01/08/18 06:30 Ordered TROPONIN I Stat LAB 01/07/18 14:30 Completed VANCOMYCIN,TROUGH Routine LAB 01/07/18 16:27 Ordered Acetaminophen [Tylenol] MEDS 01/07/18 16:24 Active 650 mg PO Q4H PRN Ceftriaxone Sodium [Rocephin] 1 gm MEDS 01/07/18 16:30 Ordered 0.9 % Sodium Chloride [Sodium Chloride] 50 ml IV DAILY Citalopram Hydrobromide [Celexa] MEDS 01/07/18 21:00 Ordered 10 mg PO BEDTIME Clonidine HCl [Catapres] MEDS 01/07/18 21:00 Ordered 0.1 mg PO BID Diltiazem HCl [Cardizem Cd] MEDS 01/08/18 09:00 Ordered 180 mg PO DAILY Ferrous Sulfate [Ferrous Sulfate] MEDS 01/07/18 21:00 Ordered 325 mg PO BID Furosemide [Lasix Tab] MEDS 01/07/18 21:00 Ordered 20 mg PO BID Ipratropium/Albuterol Neb [Duoneb] MEDS 01/07/18 18:00 Active 1 vial NEB RTQ6H Potassium Chloride [Potassium Chloride] MEDS 01/08/18 09:00 Ordered 20 meq PO DAILY Ranitidine HCl [Zantac] MEDS 01/07/18 17:00 Ordered 150 mg PO BIDAC Sennosides/Docusate Sodium [Senna-S Tablet] MEDS 01/08/18 09:00 Ordered 1 each PO DAILY Sodium Chloride 0.9% [Sodium Chloride] 1,000 ml MEDS 01/07/18 16:30 Active IV 50 mls/hr Vancomycin HCl [Vancomycin] 1 gm MEDS 01/07/18 16:30 Ordered 0.9 % Sodium Chloride [Sodium Chloride] 250 ml IV DAILY RESUSCITATION STATUS Routine OTHERS 01/07/18 16:24 Ordered CHEST, 1V AP ONLY Stat RADS 01/07/18 14:13 Completed Medications Generic Name Dose Route Start Last Admin Trade Name Freq PRN Reason Stop Dose Admin Acetaminophen 650 mg 01/07/18 16:24 Tylenol PO Q4H PRN Mild Pain Albuterol/Ipratropium 1 vial 01/07/18 18:00 Duoneb NEB RTQ6H ELBA Clonidine 0.1 mg 01/07/18 21:00 Catapres PO BID ELBA Diltiazem HCl 180 mg 01/08/18 09:00 Cardizem Cd PO DAILY ELBA Furosemide 20 mg 01/07/18 21:00 Lasix Tab PO BID ELBA Ceftriaxone Sodium 1 gm/ 50 mls @ 75 mls/hr 01/07/18 16:30 Sodium Chloride IV DAILY ELBA Sodium Chloride 1,000 mls @ 50 mls/hr 01/07/18 16:30 Sodium Chloride IV .Q20H ELBA Vancomycin HCl 1 gm/ Sodium 250 mls @ 250 mls/hr 01/07/18 16:30 Chloride IV DAILY ELBA Non-Formulary Medication 10 mg 01/07/18 21:00 Citalopram Hydrobromide [Celexa] PO BEDTIME ELBA Non-Formulary Medication 325 mg 01/07/18 21:00 Ferrous Sulfate [Ferrous Sulfate] PO BID ELBA Non-Formulary Medication 20 meq 01/08/18 09:00 Potassium Chloride [Potassium Chloride] PO DAILY ELBA Non-Formulary Medication 1 each 01/08/18 09:00 Sennosides/Docusate Sodium [Senna-S Tablet] PO DAILY ELBA Ranitidine HCl 150 mg 01/07/18 17:00 Z[facility]ac [facility]AC [facility] Vital Signs: Temp Pulse Resp BP Pulse Ox 01/07/18 13:08 98.8 F 105 H 20 118/75 94 L CONNIE Risk Score CONNIE Risk Score: Risk Score Odds of by 30D 0 0.1 (0.1-0.2) 1 0.3 (0.2-0.3) 2 0.4 (0.3-0.5) 3 0.7 (0.6-0.9) 4 1.2 (1.0-1.5) 5 2.2 (1.9-2.6) 6 3.0 (2.5-3.6) 7 4.8 (3.8-6.1) Departure - Departure Time of Disposition: 16:30 Disposition: ADMITTED INPATIENT Discharge Problem: RLL pneumonia Condition: Fair Pt referred to PMD for follow-up: Yes IPMP verified?: No Allergies/Adverse Reactions: Allergies Bleach (Sodium Hypochlorite) Adverse Reaction (Verified 01/07/18 13:29) orange juice Adverse Reaction (Verified 01/07/18 13:29) Penicillins Adverse Reaction (Verified 01/07/18 13:29) Home Medications: Ambulatory Orders Acetaminophen [Tylenol Extra Strength] 1,000 mg PO Q6H PRN 05/18/17 Albuterol Sulfate 0.083% Neb [Albuterol 0.083% Neb] 1 vial NEB RTQ6H PRN Calcium Carbonate [Tums] 200 mg PO Q4H PRN 05/18/17 Citalopram Hydrobromide [Celexa] 10 mg PO BEDTIME 05/18/17 Clonidine HCl 0.1 mg PO BID 05/18/17 Cyclobenzaprine HCl 5 mg PO Q12H PRN 05/18/17 Diltiazem HCl [Diltiazem 24Hr Cd] 180 mg PO DAILY 09/16/17 Ferrous Sulfate 325 mg PO BID 05/18/17 Furosemide 20 mg PO BID 05/18/17 Magnesium Hydroxide [Milk of Magnesia] 30 ml PO DAILY PRN 05/18/17 Potassium Chloride 20 meq PO DAILY 05/18/17 Ranitidine HCl [Zantac] 150 mg PO BIDAC 05/18/17 Sennosides/Docusate Sodium [Senna-S Tablet] 1 each PO DAILY 05/18/17 Baclofen 10 mg PO Q8H PRN 12/21/17 Guaifenesin 400 mg PO Q12H PRN 12/21/17 Clindamycin HCl 300 mg PO TID 01/07/18 Disposition Discussed With: Patient, Family (DR SUE advises to admit patient for treatment of pneumonia) Additional Information: No reported history of cough or congestion.
--- NOTE | 2018-01-07 14:57 | DI ---
EXAM: Single view of the chest. History: Chest pain. Comparison: Chest radiograph 09/17/2016, chest CT 09/17/2016 Findings: Heart is enlarged. Elevated right hemidiaphragm again noted. Right lower lobe atelectasis or infiltrate. No appreciable pleural fluid and no pneumothorax. Stable chronic deformity of the p roximal left humerus. Impression: Right lower lobe atelectasis or pneumonia. Cardiomegaly.
[2018-01-07] MEDS ORDERED: TYLENOL PO PRN (16:24)
[2018-01-07] MEDS ORDERED: ROCEPHIN ONE (17:28)
[2018-01-07] MEDS: ROCEPHIN 1 GM in SODIUM CHLORIDE 50 ML IV SCH (17:39)
[2018-01-07] MEDS: SODIUM CHLORIDE 1,000 ML IV SCH (18:39)
[2018-01-07] MEDS: DUONEB NEB SCH ×2 (18:40→23:14)
[2018-01-07] MEDS: ZANTAC PO SCH (18:41)
[2018-01-07] MEDS: LASIX TAB PO SCH (18:41)
[2018-01-07] MEDS: VANCOMYCIN 1 GM in SODIUM CHLORIDE 250 ML IV SCH (18:48)
[2018-01-07 19:44] VITALS: BMI 22.4
[2018-01-07] MEDS ORDERED: NON-FORMULARY MEDICATION (Ferrous Sulfate [Ferrous Sulfate] 325 MG) PO SCH (21:00)
[2018-01-07] MEDS ORDERED: NON-FORMULARY MEDICATION (Citalopram Hydrobromide [Celexa] 10 MG) PO SCH (21:00)
[2018-01-07] MEDS: CELEXA PO SCH (22:01)
[2018-01-07] MEDS: CATAPRES PO SCH (22:02)
[2018-01-07] MEDS: FERROUS SULFATE PO SCH (22:02)
[2018-01-08] MEDS: DUONEB NEB SCH ×4 (04:30→22:50)
[2018-01-08] MEDS: LASIX TAB PO SCH ×2 (05:49→17:29)
[2018-01-08] MEDS: ZANTAC PO SCH ×2 (05:49→17:29)
[2018-01-08] MEDS: ROCEPHIN 1 GM in SODIUM CHLORIDE 50 ML IV SCH (08:58)
[2018-01-08] MEDS: COLACE PO SCH (08:59)
[2018-01-08] MEDS: CARDIZEM CD PO SCH (08:59)
[2018-01-08] MEDS: K-DUR PO SCH (08:59)
[2018-01-08] MEDS: CATAPRES PO SCH ×2 (08:59→21:14)
[2018-01-08] MEDS: FERROUS SULFATE PO SCH ×2 (08:59→21:14)
[2018-01-08] MEDS: SENNA PO SCH (09:00)
[2018-01-08] MEDS ORDERED: NON-FORMULARY MEDICATION (Sennosides/Docusate Sodium [Senna-S Tablet] 1 EACH) PO SCH (09:00)
[2018-01-08] MEDS ORDERED: NON-FORMULARY MEDICATION (Potassium Chloride [Potassium Chloride] 20 MEQ) PO SCH (09:00)
[2018-01-08] MEDS: VANCOMYCIN 1 GM in SODIUM CHLORIDE 250 ML IV SCH (09:49)
--- NOTE | 2018-01-08 11:21 | RS.OTINEVL ---
Subjective - Patient information Date of Evaluation: 01/08/18 Date of Arrival on Unit: 01/07/18 Admitted From:: Emergency Dept Usual Living Arrangement: [facility] Living Arrangement Comments: Pt lives in [facility] facility. 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 - Level of function Prior to this admission, the patient could do the following:: Partially Dependent Ambulation Abilities prior to this admission: Pt was able to walk with rolling walker in the [facility]. Current Level of Function: Partially Dependent Current Equipment Used at Home: rollator, wheelchair Pain Assessment - Pain Pain Score: 4 Side: left Pain Location Body Site: Ankle Pain Aggravating Factors: Changing Position, Standing, Walking Pain Alleviating Factors: Medication, Position Change, Sitting, Lying Supine Interventions - Objective Patient Orientation: Person Current Interventions: IV's, Telemetry Observation: Pt is blind and is confused. Pt did not know where she was. Pt is impulsive, and has difficulty staying on task. Interventions - ROM Right Upper Extremity AROM: WFL's Left Upper Extremity AROM: Slight limitation - Strength Right Upper Extremity Strength: Mild Weakness Left Upper Extremity Strength: Mild Weakness - Sensation Right Upper Extremity Sensation: Intact/Normal Left Upper Extremity Sensation: Intact/Normal Balance - Sitting Balance Static Sitting Balance: Good Dynamic Sitting Balance: Good - Standing Balance Static Standing Balance: Poor Dynamic Standing Balance: Poor ADL Skills - Self Feeding Self Feeding: CGA - Grooming Grooming: Min Assist - Bathing Bathing UE: Min Assist Bathing LE: Min Assist - Dressing Dressing UE: Min Assist Dressing LE: Min Assist - Toilet Management Toileting Management: Max Assist Functional Mobility - Bed Mobility Rolling R/L: Mod Assist Scooting: Mod Assist Supine to Sit: Supervision, Min Assist Sit to Supine: Supervision - Transfers Sit to Stand: Min Assist, 2 person assist Stand to Sit: Min Assist, 2 person assist Stand Pivot Transfers: Min Assist, 2 person assist - Ambulation Weight Bearing Status: FWB Assistive Device Used: Rolling Walker Assistance needed with Ambulation: Min Assist, 2 person assist - Safety Awareness Safety Awareness: Poor TOBIAS INDEX SCORE: . Additional Treatment Performed - Additional units charged ADL: 15 - Time with patient Total treatment time: 38 Activities Patient Interests:: Visiting/Socializing Patient Education Teaching Recipient: Patient Teaching Methods: Discussion Assessment Problem List:: Decreased level of function, Requires training/education, Decreased safety/Risk of falls, Weakness, Pain limits previous level of function Rehab Potential: Good Further Therapy Indicated?: Yes Evaluation Complexity: HISTORY: Medium, EXAM OF BODY SYSTEMS: Medium, CLINICAL DECISION MAKING: Medium Short Term Goals - Goals GOAL 1: Pt to increase LE dressing to (I). Goal to be met by: 01/14/18 GOAL 2: Pt to increase dyn. Std. activity tolerance to 15 minutes Goal to be met by: 01/14/18 GOAL 3: Pt to increase BUE strength to 4/5. Goal to be met by: 01/14/18 [facility] Goals GOAL 1: Pt to increase (I) of self cares to CGA. Goal to be met by: 01/22/18 GOAL 2: Pt to increase dyn. Std. activity tolerance to 20 minutes Goal to be met by: 01/22/18 GOAL 3: Pt to increase BUE strengtht to 4+/5 Goal to be met by: 01/22/18 Plan Plan of Care: Therapeutic EX, Neuromuscular Re-Educ, Therapeutic Activity, Self- Care/Home Management Frequency of Treatment: 1-2 X day, as tolerated Duration of Treatment: 2 Weeks Anticipated Discharge Destination: [facility] Treatment Diagnosis (ICD 10 Codes): M62.81 Muscle Weakness, Z74.1 Need for assistance with self care. Has the Physician been added for Co-signature?: Yes
--- NOTE | 2018-01-08 12:57 | RS.PTINEVL ---
Subjective - Patient information Date of Evaluation: 01/08/18 Date of Arrival on Unit: 01/07/18 Admitted From:: Emergency Dept Diagnosis: RLL pneumonia, chest pain Usual Living Arrangement: [facility]rang[facility] Comments: Pt lives in half-way facility. Home Environment: Level/No stairs Medical History: Hypertension, CVA/TIA, Dementia, Arthritis Medical History Comments:: back pain, schizophrenia, GERD, OCD, dysphagia, LATEX ALLERGY?: No Medications: see chart Subjective Information/ Patient Comments:: pt speech is difficult to understand , pt is agreeable to get out of bed. - Level of function Prior to this admission, the patient could do the following:: Partially Dependent Ambulation Current Level of Function: Partially Dependent Current Equipment Used at Home: rollator, wheelchair Pain Assessement - Location LLE Description: Aching Pain Behavior: Facial Grimacing Pain Aggravating Factors: Changing Position, Walking Pain Alleviating Factors: Medication Range of Motion - ROM Right Upper Extremity AROM: WFL's Left Upper Extremity AROM: WFL's Right Lower Extremity AROM: WFL's Left Lower Extremity AROM: WFL's Muscle Strength - Muscle Strength Right Upper Extremity Strength: Mild Weakness (grossly 4-/5) Left Upper Extremity Strength: Mild Weakness (grossly 4-/5) Right Lower Extremity Strength: Mild Weakness (hip flex 3+/5, knee flex/ext 4-/5 , ankle DF/PF 4-/5) Left Lower Extremity Strength: Mild Weakness (hip flex 3/5 , knee flex/ext 3+/5 , ext 4-/5) Sensation - Sensation Right Upper Extremity Sensation: Intact/Normal Left Upper Extremity Sensation: Intact/Normal Right Lower Extremity Sensation: Intact/Normal Left Lower Extremity Sensation: Intact/Normal Palpation Palpation Findings: Tenderness Comments:: LLE due to cellulitis Balance - Sitting Balance and Reactions Static Sitting Balance: Fair Dynamic Sitting Balance: Poor Sitting Equilibrium Reactions: Delayed Left, Delayed Right Sitting Protective Reactions: Delayed Left, Delayed Right - Standing Balance and Reactions Static Standing Balance: Poor Dynamic Standing Balance: Poor Standing Equilibrium Reactions: Delayed Left, Delayed Right Standing Protective Reactions: Delayed Left, Delayed Right - Comments Balance Assessment Comments: pt with flexed posture, occasional scissoring Functional Mobility - Bed Mobility Scooting: Mod Assist, 2 person assist Supine to Sit: Mod Assist, 2 person assist - Transfers Sit to Stand: Min Assist, 2 person assist Stand to Sit: Min Assist, 2 person assist Stand Pivot Transfers: Min Assist, 2 person assist - Safety Awareness Safety Awareness: Fair TOBIAS INDEX SCORE: n/a Ambulation - Ambulation Assistive Device Used: Rolling Walker Orthotic/Prosthetic Device: No Distance: 5ft Assistance needed with Ambulation: Min Assist, 2 person assist Gait Deviations: Forward posture Ambulation Comments: occasional scissoring Factors Affecting Ambulation: Decreased Balance, Weakness, Decreased Safety, Cognitive Status, Limited Endurance Treatment time - Time with patient Total treatment time: 27 Patient Education - Education Patient Education: Activity Modification, Education of Plan of Care Teaching Recipient: Patient Teaching Methods: Discussion (discussion regarding POC, however pt does not appear to understand) Assessment - Assessment Problem List:: Decreased level of function, Requires training/education, Decreased safety/Risk of falls, Weakness, Pain limits previous level of function , Cognitive status limits abilities Rehab Potential: Fair Further Therapy Indicated?: Yes Evaluation Complexity: HISTORY: Medium (chest pain, HTN, schizophrenia, OA), EXAM OF BODY SYSTEMS: Medium (strength, balance, gait, posture, edema), CLINICAL PRESENTATION: Medium (evolving), CLINICAL DECISION MAKING: Medium Short Term Goals GOAL #1: pt demonstrate rolling with min x 1 Goal to be met by: 01/10/18 GOAL #2: pt transfer sup to/from sit to/from stand min to mod x 1 Goal to be met by: 01/10/18 GOAL #3: pt amb with rwx 25ft with min+ x1 to allow mobility in the room. Goal to be met by: 01/10/18 [facility] Goals GOAL #1: pt transfer sup to/from sit to/from stand min x 1 Goal to be met by: 01/14/18 GOAL #2: pt amb with rwx functional distances with min/CGA x 1 to improve mobility Goal to be met by: 01/14/18 GOAL #3: pt with improved BLE strength 4/5 Goal to be met by: 01/14/18 Plan Plan of Care: Therapeutic EX, Therapeutic Activity Other:: gait training Frequency of Treatment: 1-2 X day, as tolerated Duration of Treatment: 1 Week Anticipated Discharge Destination: [facility] Care Facility Treatment Diagnosis (ICD 10 Codes): R26.2 difficulty walking. R26.81 balance impaired Has the Physician been added for Co-signature?: Yes
[2018-01-08] MEDS ORDERED: K-DUR PO STA (13:33)
[2018-01-08] MEDS: SODIUM CHLORIDE 1,000 ML IV SCH (17:35)
[2018-01-08] MEDS: CELEXA PO SCH (21:14)
[2018-01-09] MEDS: DUONEB NEB SCH ×4 (05:06→22:28)
[2018-01-09] MEDS: ZANTAC PO SCH ×2 (06:05→18:10)
[2018-01-09] MEDS: LASIX TAB PO SCH ×2 (06:05→18:10)
[2018-01-09] MEDS: ROCEPHIN 1 GM in SODIUM CHLORIDE 50 ML IV SCH (08:34)
[2018-01-09] MEDS: CARDIZEM CD PO SCH (08:35)
[2018-01-09] MEDS: SENNA PO SCH (08:35)
[2018-01-09] MEDS: FERROUS SULFATE PO SCH ×2 (08:36→21:16)
[2018-01-09] MEDS: COLACE PO SCH (08:36)
[2018-01-09] MEDS: K-DUR PO SCH (08:37)
[2018-01-09] MEDS: CATAPRES PO SCH ×2 (08:37→21:16)
[2018-01-09] MEDS: VANCOMYCIN 1 GM in SODIUM CHLORIDE 250 ML IV SCH (09:39)
[2018-01-09] MEDS: SODIUM CHLORIDE 1,000 ML IV SCH (13:47)
[2018-01-09] MEDS: LOVENOX SUBCUT SCH (18:27)
[2018-01-09] MEDS: CELEXA PO SCH (21:16)
[2018-01-10] MEDS: DUONEB NEB SCH ×4 (05:07→19:30)
[2018-01-10] MEDS: LASIX TAB PO SCH ×2 (05:31→17:00)
[2018-01-10] MEDS: ZANTAC PO SCH ×2 (05:31→17:00)
[2018-01-10] MEDS: ROCEPHIN 1 GM in SODIUM CHLORIDE 50 ML IV SCH (08:08)
[2018-01-10] MEDS: LOVENOX SUBCUT SCH (08:08)
[2018-01-10] MEDS: K-DUR PO SCH (08:09)
[2018-01-10] MEDS: CATAPRES PO SCH ×2 (08:09→20:24)
[2018-01-10] MEDS: SENNA PO SCH (08:09)
[2018-01-10] MEDS: CARDIZEM CD PO SCH (08:09)
[2018-01-10] MEDS: COLACE PO SCH (08:09)
[2018-01-10] MEDS: FERROUS SULFATE PO SCH ×2 (08:10→20:24)
[2018-01-10] MEDS ORDERED: ATIVAN IVP STA (08:43)
[2018-01-10] MEDS: VANCOMYCIN 1 GM in SODIUM CHLORIDE 250 ML IV SCH (09:10)
[2018-01-10] MEDS: SODIUM CHLORIDE 1,000 ML IV SCH (09:10)
--- NOTE | 2018-01-10 13:52 | US ---
Exam: Carballo-scale and color ultrasonographic evaluation of the right and left lower extremity venous structures. Comparison: None available. Reason for exam: Leg edema and redness and pain. FINDINGS: There is spontaneous flow with compression and augmentation in the right and left common f emoral, greater saphenous, profunda, superficial femoral, popliteal, peroneal, and posterior tibial v eins. There is spontaneous flow with compression and augmentation in the right anterior tibial vein. The left anterior tibial vein was not well seen on the exam. There is arterial stent seen in the l eft anterior tibial artery. Impression: 1. No ultrasonographic evidence of thrombus is seen in the right or left lower extremity venous stru ctures. 2. The left anterior tibial vein is not well seen on the exam. 3. An arterial stent is seen in the left anterior tibial artery.
--- NOTE | 2018-01-10 13:52 | HP ---
DATE OF SERVICE: 01/07/18 CHIEF COMPLAINT: Chest pain HISTORY OF PRESENT ILLNESS: This is an 82 year old female who resides in the [facility]. She was initially was having the left lower extremity cellulitis and being treated with Clindamycin since two days and today the patient woke up and started complaining of chest pain, right-sided, cough, congestion and shortness of breath. Elevated blood pressure when they checked. The [facility] nurse was concerned as the blood pressure was 160/102 and with the chest pain the patient was brought to the emergency room for the evaluation. The patient was seen by Dr. Mejias. CBC was normal with hgb of 11. First set of cardiac enzymes are negative. EKG did not show any acute ST-T wave changes. Chest x-ray showed right lower lobe pneumonia. The patient was admitted with right lower lobe pneumonia, left lower extremity diffused cellulitis for IV antibiotics, breathing treatment and steroids. REVIEW OF SYSTEMS: CONSTITUTIONAL: No fever, no chills. Weakness and tiredness. HEENT: Normal. ENDOCRINE: No weight gain; no weight loss. CVS: Chest pain. No PND, no orthopnea. Shortness of breath. No PND, no orthopnea. Elevated blood pressure. RESPIRATORY: Cough, Congestion. No hemoptysis. GI: No nausea, no vomiting. No abdominal pain. No melena. : No hematuria. No polyuria. MUSCULOSKELETAL: No joint swelling. Left leg pain and cellulitis . PSYCHIATRIC: Not anxious. No depression. No suicidal thoughts. No homicidal thoughts. SKIN: Intact, no open lesions. PAST MEDICAL HISTORY: CAD Hypertension Peripheral vascular disease Alzheimer's Dementia GERD Osteoarthritis Schizophrenia PAST SURGICAL HISTORY: Cataract surgery PERSONAL HISTORY: The patient does stay at the nursing. Needs help with the ADL's. FAMILY HISTORY: High blood pressure MEDICATIONS: Senna Clonidine Zantac Tylenol Tums Potassium Milk of magnesia Lasix Ferrous sulfate Diltiazem Cyclobenzaprine Celexa Albuterol Baclofen Guaifenesin Clindamycin ALLERGIES: Bleach Upton juice Penicillin PHYSICAL EXAMINATION: V/S: Blood pressure 162/72, respiratory rate 24, heart rate 104, temperature 98.8 with saturation 94 on room air. GENERAL: Sick looking lady laying in the bed not in any distress. Uncooperative with examination as the patient is upset that patient had a stick. HEENT: Atraumatic, normocephalic. No scleral icterus. Pallor positive. Mucosa dry. NECK: Supple. No JVD, no bruit. No lymphadenopathy. No thyromegaly. HEART: S1, S2 normal. No murmur. No cyanosis or clubbing. No ascites. LUNGS: Decreased and basilar crackles. Clear to auscultation. No rales or rhonchi. ABDOMEN: Soft, nontender. Bowel sounds are active. No CVA tenderness. No rigidity or guarding. EXTREMITIES: Left lower extremity below the knee redness, swelling and tender to touch, 2+ leg edema. No cyanosis or clubbing. Has contractures to upper and lower extremities. MUSCULOSKELETAL: Normal joints, no swelling. NEUROLOGIC: The patient is awake and alert but she is not oriented. SKIN: Intact; no open lesions. LYMPHATIC: No lymph nodes palpable. LABS: Sodium 133, potassium 3.8, chloride 96, bicarb 28, BUN 13, creatinine 0.62 and glucose 114. WBC 9.19, hgb 11.9, hct 35.4, plt count 222. ASSESSMENT: 1. Chest pain 2. Right lower lobe pneumonia 3. Left lower extremity cellulitis 4. Schizophrenia 5. Hypertension PLAN: 1. Admit the patient to the regular floor 2. CBC and CMP today and daily 3. Cardiac enzymes and Troponin 4. IV fluids 5. Breathing treatments 6. Rocephin 7. Vancomycin TIME SPENT: MORE THAN 75 minutes MTDD
--- NOTE | 2018-01-10 14:48 | PN ---
DATE OF SERVICE: 01/08/18 SUBJECTIVE: The patient was admitted from the emergency room yesterday for the pneumonia and the left lower lobe diffused cellulitis. The patient does not complain anymore chest pain. REVIEW OF SYSTEMS: CONSTITUTIONAL: No fever, no chills. HEENT: Normal. ENDOCRINE: No weight gain, no weight loss. CVS: No angina symptoms. No CHF symptoms. No palpitations. No atypical chest pain for CAD. No shortness of breath. No PND, no orthopnea. RESPIRATORY: Cough on and off , no hemoptysis. GI: No nausea, no vomiting. No abdominal pain. : No hematuria. No polyuria. MUSCULOSKELETAL: No joint swelling. PSYCHIATRIC: Not anxious. No depression. No suicidal thoughts. No homicidal thoughts. SKIN: Intact. No rash. PHYSICAL EXAMINATION: V/S: Blood pressure 110/62, respiratory rate 20, heart rate 90, temperature 98.7 , saturation 96. HEENT: Normocephalic, atraumatic. Mucosa dry. Pallor positive. No icterus. NECK: Supple. No JVD, no carotid bruit. No lymphadenopathy. LUNGS: Decreased and basilar crackles. Right more than the left. Clear to auscultation. No rales or rhonchi. HEART: S1, S2 normal. No S3. No murmur, gallop or regurgitation. ABDOMEN: Soft, nontender. Bowel sounds active. No rigidity. No rebound or guarding. No CVA tenderness. EXTREMITIES: Left leg edema 1+. Left leg swelling and redness is somewhat better. Still swelling and redness distending from the below knee to the ankle. MUSCULOSKELETAL: No joint swelling. Leg pain. NEUROLOGIC: Awake, alert, oriented times three. No focal deficit. LYMPHATIC: No lymph nodes palpable. SKIN: Intact. LABS: WBC 5.93, hgb 10.1, hct 30.4, plt count 196, sodium 134, potassium 3.2, chloride 100, bicarb 26, BUN 10, creatinine 0.58 and glucose 100. ASSESSMENT: 1. Right lower lobe pneumonia 2. Left lower extremity defused cellulitis 3. Dementia 4. Schizophrenia 5. Osteoarthritis 6. DJD spine 7. GERD 8. Hypokalemia PLAN: 1. Give extra dose of Potassium 40 meq 2. Rocephin 1 gram daily 3. Vancomycin 4. IV fluids at 50ml per hour 5. Keep the legs elevated TIME SPENT: More than 35 minutes MTDD
[2018-01-10] MEDS: CELEXA PO SCH (20:25)
[2018-01-11] MEDS: DUONEB NEB SCH ×4 (05:18→19:45)
[2018-01-11] MEDS: SODIUM CHLORIDE 1,000 ML IV SCH (05:46)
[2018-01-11] MEDS: ZANTAC PO SCH ×2 (05:46→16:17)
[2018-01-11] MEDS: LASIX TAB PO SCH ×2 (05:46→16:17)
[2018-01-11] MEDS: K-DUR PO SCH (08:14)
[2018-01-11] MEDS: COLACE PO SCH (08:14)
[2018-01-11] MEDS: SENNA PO SCH (08:15)
[2018-01-11] MEDS: CARDIZEM CD PO SCH (08:15)
[2018-01-11] MEDS: FERROUS SULFATE PO SCH ×2 (08:15→20:38)
[2018-01-11] MEDS: ROCEPHIN 1 GM in SODIUM CHLORIDE 50 ML IV SCH (08:15)
[2018-01-11] MEDS: CATAPRES PO SCH ×2 (08:15→20:38)
[2018-01-11] MEDS: LOVENOX SUBCUT SCH (08:15)
[2018-01-11] MEDS: VANCOMYCIN 1 GM in SODIUM CHLORIDE 250 ML IV SCH (09:49)
[2018-01-11] MEDS ORDERED: K-DUR PO STA (20:07)
[2018-01-11] MEDS: CELEXA PO SCH (20:37)
[2018-01-12] MEDS: SODIUM CHLORIDE 1,000 ML IV SCH (03:10)
[2018-01-12] MEDS: DUONEB NEB SCH ×4 (05:45→19:30)
[2018-01-12] MEDS: LASIX TAB PO SCH ×2 (06:22→16:43)
[2018-01-12] MEDS: ZANTAC PO SCH ×2 (06:23→16:43)
--- NOTE | 2018-01-12 06:42 | DI ---
EXAM: Three views of the left foot HISTORY: Cellulitis. COMPARISON: None the FINDINGS: There is moderate to severe medial subluxation of the second MTP joint. There is moderate hallux valgus deformity of the first MTP joint with degenerative disease. There is no displaced frac ture or dislocation. There is no lytic or blastic lesion. Soft tissues demonstrate mild soft tissue swelling. There is flattening of the arch. IMPRESSION: 1. Soft tissue swelling with no subcutaneous gas consistent with cellulitis. 2. Moderate hallux valgus deformity of the first MTP joint. 3. Moderate to severe medial subluxation of the second MTP joint.
[2018-01-12] MEDS: K-DUR PO SCH (08:08)
[2018-01-12] MEDS: CATAPRES PO SCH ×2 (08:08→20:36)
[2018-01-12] MEDS: COLACE PO SCH (08:08)
[2018-01-12] MEDS: FERROUS SULFATE PO SCH ×2 (08:08→20:37)
[2018-01-12] MEDS: SENNA PO SCH (08:08)
[2018-01-12] MEDS: LOVENOX SUBCUT SCH (08:09)
[2018-01-12] MEDS: CARDIZEM CD PO SCH (08:12)
[2018-01-12] MEDS: KEFLEX PO SCH ×2 (08:12→20:37)
[2018-01-12] MEDS: VANCOMYCIN 1 GM in SODIUM CHLORIDE 250 ML IV SCH (09:59)
[2018-01-12] MEDS: CELEXA PO SCH (20:36)
[2018-01-12] MEDS: VANCOMYCIN 750 MG in SODIUM CHLORIDE 250 ML IV SCH (20:36)
[2018-01-13] MEDS: DUONEB NEB SCH ×4 (04:50→20:10)
[2018-01-13] MEDS: LASIX TAB PO SCH ×2 (06:09→17:25)
[2018-01-13] MEDS: ZANTAC PO SCH ×2 (06:09→17:25)
[2018-01-13] MEDS: SODIUM CHLORIDE 1,000 ML IV SCH (07:56)
[2018-01-13] MEDS: SENNA PO SCH (09:43)
[2018-01-13] MEDS: COLACE PO SCH (09:44)
[2018-01-13] MEDS: KEFLEX PO SCH ×2 (09:44→21:45)
[2018-01-13] MEDS: CARDIZEM CD PO SCH (09:44)
[2018-01-13] MEDS: LOVENOX SUBCUT SCH (09:45)
[2018-01-13] MEDS: VANCOMYCIN 750 MG in SODIUM CHLORIDE 250 ML IV SCH ×2 (09:45→21:44)
[2018-01-13] MEDS: FERROUS SULFATE PO SCH ×2 (09:45→21:45)
[2018-01-13] MEDS: CATAPRES PO SCH ×2 (09:45→21:45)
[2018-01-13] MEDS: K-DUR PO SCH (09:45)
--- NOTE | 2018-01-13 09:57 | PN ---
DATE OF SERVICE: 01/09/18 SUBJECTIVE: The patient was admitted with the left lower extremity cellulitis and right lower lobe pneumonia. The patient had some coughing. Left leg swelling and redness is better. REVIEW OF SYSTEMS: CONSTITUTIONAL: No fever, no chills. HEENT: Normal. ENDOCRINE: No weight gain, no weight loss. CVS: No angina symptoms. No CHF symptoms. No palpitations. No atypical chest pain for CAD. No shortness of breath. No PND, no orthopnea. RESPIRATORY: No cough, no hemoptysis. GI: No nausea, no vomiting. No abdominal pain. : No hematuria. No polyuria. MUSCULOSKELETAL: No joint swelling. PSYCHIATRIC: Not anxious. No depression. No suicidal thoughts. No homicidal thoughts. SKIN: Intact. No rash. PHYSICAL EXAMINATION: V/S: Blood pressure 98/51, respiratory rate 16, heart rate 83, temperature 97.6 , saturation 96. HEENT: Normocephalic, atraumatic. Mucosa dry. Pallor positive. No icterus. NECK: Supple. No JVD, no carotid bruit. No lymphadenopathy. LUNGS: Clear to auscultation. No rales or rhonchi. HEART: S1, S2 normal. No S3. No murmur, gallop or regurgitation. ABDOMEN: Soft, nontender. Bowel sounds active. No rigidity. No rebound or guarding. No CVA tenderness. EXTREMITIES: No cyanosis, clubbing or pedal edema. Left leg below knee redness and swelling and swelling is present. Small open spot on the second toe. Dorsum of the foot is also red and swollen and warm to touch. MUSCULOSKELETAL: No joint swelling. NEUROLOGIC: Awake, alert, oriented times three. No focal deficit. LYMPHATIC: No lymph nodes palpable. SKIN: Intact. LABS: WBC 5.64, hgb 10.3, hct 30.7, plt count 195, sodium 133, potassium 3.7, chloride 101, bicarb 25, BUN 6, creatinine 0.55 and glucose 96. ASSESSMENT: 1. Right lower lobe pneumonia, facility acquired pneumonia 2. Left lower extremity cellulitis, superficial 3. Alzheimer's Dementia 4. Hypertension 5. Peripheral vascular disease 6. GERD 7. Osteoarthritis 8. Schizophrenia PLAN: 1. Continue the Rocephin, Vancomycin and breathing treatments 2. Daily I&O's TIME SPENT: More than 35 minutes MTDD
--- NOTE | 2018-01-13 10:32 | PN ---
DATE OF SERVICE: 01/10/18 SUBJECTIVE: The patient was admitted with pneumonia and left lower extremity cellulitis. Coughing is resolved. The patient is more awake and alert. Left leg swelling and redness is getting better. Needs help with the ADL's. REVIEW OF SYSTEMS: CONSTITUTIONAL: No fever, no chills. HEENT: Normal. ENDOCRINE: No weight gain, no weight loss. CVS: No angina symptoms. No CHF symptoms. No palpitations. No atypical chest pain for CAD. No shortness of breath. No PND, no orthopnea. RESPIRATORY: No cough, no hemoptysis. GI: No nausea, no vomiting. No abdominal pain. : No hematuria. No polyuria. MUSCULOSKELETAL: No joint swelling. PSYCHIATRIC: Not anxious. No depression. No suicidal thoughts. No homicidal thoughts. SKIN: Intact. No rash. PHYSICAL EXAMINATION: V/S: Blood pressure 125/77, respiratory rate 20, heart rate 88, temperature 98.8 with saturation 95%. HEENT: Normocephalic, atraumatic. Mucosa dry. NECK: Supple. No JVD, no carotid bruit. No lymphadenopathy. LUNGS: Decreased and basilar crackles. Clear to auscultation. No rales or rhonchi. HEART: S1, S2 normal. No S3. No murmur, gallop or regurgitation. ABDOMEN: Soft, nontender. Bowel sounds active. No rigidity. No rebound or guarding. No CVA tenderness. EXTREMITIES: No cyanosis, clubbing or pedal edema. Left lower leg redness and swelling is present. Open wound in the left second toe which is dry. Contractures in the lower extremity. MUSCULOSKELETAL: No joint swelling. NEUROLOGIC: Awake, alert, not oriented times three. No focal deficit. LYMPHATIC: No lymph nodes palpable. SKIN: Intact. LABS: Sodium 132, potassium 3.4, chloride 97, bicarb 27, BUN 6, creatinine 0.58, glucose 88, WBC 4.57, hgb 10.8, hct 32.5, plt count 231. ASSESSMENT: 1. Left lower extremity cellulitis, diffused 2. Right lower lobe pneumonia 3. Alzheimer's Dementia 4. Schizophrenia 5. Osteoarthritis 6. DJD spine 7. Left foot second toe open wound PLAN: 1. Will get an ESR 2. Continue Rocephin and Vancomycin 3. Breathing treatment 4. Daily I&O's TIME SPENT: More than 35 minutes RICHARD
--- NOTE | 2018-01-13 11:29 | DI ---
EXAM: Chest two view, frontal and lateral views. HISTORY: Shortness of breath, cough. COMPARISON: 01/07/2018. FINDINGS: Cardiac silhouette is enlarged. Atherosclerotic calcifications are present. Linear opaci ties seen in both lung bases. No consolidation, pleural effusion or pneumothorax identified. Right diaphragm is elevated. Multilevel thoracolumbar vertebral compression deformities noted. Old left h umeral fracture noted with plate and screw fixation in the left humeral diaphysis. Since the prior , there has been no significant interval change. IMPRESSION: Bibasilar subsegmental atelectasis.
--- NOTE | 2018-01-13 12:54 | PN ---
DATE OF SERVICE: 01/11/18 SUBJECTIVE: The patient was admitted with left lower extremity cellulitis and right lower lobe pneumonia. Coughing is better with left extremity redness and swelling is better but still has redness in the left leg dorsum of the foot. Second tow has the ulcer which is healing better. ESR was elevated yesterday 49. REVIEW OF SYSTEMS: CONSTITUTIONAL: No fever, no chills. HEENT: Normal. ENDOCRINE: No weight gain, no weight loss. CVS: No angina symptoms. No CHF symptoms. No palpitations. No atypical chest pain for CAD. No shortness of breath. No PND, no orthopnea. RESPIRATORY: No cough, no hemoptysis. GI: No nausea, no vomiting. No abdominal pain. : No hematuria. No polyuria. MUSCULOSKELETAL: No joint swelling. PSYCHIATRIC: Not anxious. No depression. No suicidal thoughts. No homicidal thoughts. SKIN: Intact. No rash. PHYSICAL EXAMINATION: V/S: blood pressure 123/68, respiratory rate 20, heart rate 80, temperature 98.9 and saturation 96%. GENERAL: Cachetic lady laying in a bed and not in any distress. HEENT: Normocephalic, atraumatic. Mucosa dry. Pallor positive. NECK: Supple. No JVD, no carotid bruit. No lymphadenopathy. LUNGS: Decreased and basilar crackles. Clear to auscultation. No rales or rhonchi. HEART: S1, S2 normal. No S3. No murmur, gallop or regurgitation. ABDOMEN: Soft, nontender. Bowel sounds active. No rigidity. No rebound or guarding. No CVA tenderness. EXTREMITIES: No cyanosis, clubbing or pedal edema. Left leg superficial redness, warmness is present. Left second toe ulcer looks healthy. MUSCULOSKELETAL: No joint swelling. NEUROLOGIC: Awake, alert, oriented times three. No focal deficit. LYMPHATIC: No lymph nodes palpable. SKIN: Intact. LABS: WBC 3.91, hgb 11.3, hct 33.3, plt count 249, sodium 133, potassium 3.2, chloride 95, bicarb 27, BUN 6, creatinine 0.58 ASSESSMENT: 1. Hypokalemia 2. Left leg cellulitis and superficial cellulitis 3. Right lower lobe pneumonia, facility acquired 4. Peripheral vascular disease 5. Hypertension 6. Alzheimer's Dementia 7. GERD PLAN: 1. Stop the Rocephin will change to Keflex 2. Vancomycin 1 gram daily 3. Lasix 4. Will get foot x-ray TIME SPENT: More than 35 minutes MTDD
--- NOTE | 2018-01-13 13:19 | PN ---
DATE OF SERVICE: 01/12/18 SUBJECTIVE: The patient has x-ray of the foot there is some soft tissue swelling and no subcutaneous gas, moderate arch arthritis and moderate to severe medical subluxation of the second MTP joint. REVIEW OF SYSTEMS: CONSTITUTIONAL: No fever, no chills. HEENT: Normal. ENDOCRINE: No weight gain, no weight loss. CVS: No angina symptoms. No CHF symptoms. No palpitations. No atypical chest pain for CAD. No shortness of breath. No PND, no orthopnea. RESPIRATORY: Some cough, no hemoptysis. GI: No nausea, no vomiting. No abdominal pain. : No hematuria. No polyuria. MUSCULOSKELETAL: No joint swelling. PSYCHIATRIC: Not anxious. No depression. No suicidal thoughts. No homicidal thoughts. SKIN: Intact. No rash. PHYSICAL EXAMINATION: V/S: Blood pressure 144/72, respiratory rate 18, heart rate 75, temperature 98.0. HEENT: Normocephalic, atraumatic. Mucosa dry. Pallor positive. No icterus. NECK: Supple. No JVD, no carotid bruit. No lymphadenopathy. LUNGS: Decreased and clear to auscultation. No rales or rhonchi. HEART: S1, S2 normal. No S3. No murmur, gallop or regurgitation. ABDOMEN: Soft, nontender. Bowel sounds active. No rigidity. No rebound or guarding. No CVA tenderness. EXTREMITIES: No cyanosis, clubbing or pedal edema. Left leg below the knee redness and swelling is present. Warm to touch. Second toe wound looking healthy. MUSCULOSKELETAL: No joint swelling. NEUROLOGIC: Awake, alert, oriented times three. No focal deficit. LYMPHATIC: No lymph nodes palpable. SKIN: Intact. LABS: WBC 3.91, hct 11.4, hct 33.3,. plt count 249, sodium 133, potassium 3.2, chloride 95, bicarb 6, BUN 0.56 ASSESSMENT: 1. Hypokalemia 2. Left leg cellulitis and superficial cellulitis 3. Right lower lobe pneumonia, facility acquired 4. Peripheral vascular disease 5. Hypertension 6. GERD 7. Alzheimer's Dementia PLAN: 1. Will replace the potassium and recheck the potassium 2. Continue the Vancomycin and Keflex 3. DUO NEBS 4. IV fluids 5. Daily I&O's TIME SPENT: More than 35 minutes MTDD
--- NOTE | 2018-01-13 14:03 | NM ---
EXAM: Bone scan, three-phase . HISTORY: Suspected osteomyelitis of the left second toe. COMPARISON: None of this type. Radiograph 01/11/2018. PROCEDURE: The patient was injected with 25.7 mCi of 99m technetium HDP intravenously. A flow study w as performed followed by immediate blood pool phase images. After an appropriate interval, delayed nehemias ne phase images were obtained. FINDINGS: Dynamic perfusion phase images demonstrate symmetric activity in the included portions of t he ankles and feet. Immediate blood pool phase images demonstrate similar symmetric activity. Delaye d bone phase images demonstrate symmetric, normal appearing activity in the ankles and feet with some what greater activity in the calcanei. The examination does not show abnormally increased activity i n the left second toe on any of the three phases. Incidental note is made of increased activity in th e left patella on the second and third phases. IMPRESSION: 1.The three-phase examination does not show findings indicative of osteomyelitis of the left second t oe. 2.The examination demonstrates generally normal findings as described in the report. 3.Incidental note is made of increased activity in the left patella which is of undetermined origin b ut may be due to for example trauma or stress.
[2018-01-13] MEDS: CELEXA PO SCH (21:44)
[2018-01-14] MEDS: ZANTAC PO SCH (05:29)
[2018-01-14] MEDS: LASIX TAB PO SCH (05:29)
[2018-01-14] MEDS: DUONEB NEB SCH ×3 (05:30→14:05)
[2018-01-14] MEDS ORDERED: DECADRON 4 MG/ML SDV IVP STA (08:24)
[2018-01-14] MEDS: VANCOMYCIN 750 MG in SODIUM CHLORIDE 250 ML IV SCH (08:57)
[2018-01-14] MEDS: CARDIZEM CD PO SCH (09:04)
[2018-01-14] MEDS: K-DUR PO SCH (09:05)
[2018-01-14] MEDS: FERROUS SULFATE PO SCH (09:05)
[2018-01-14] MEDS: SENNA PO SCH (09:05)
[2018-01-14] MEDS: COLACE PO SCH (09:05)
[2018-01-14] MEDS: CATAPRES PO SCH (09:05)
[2018-01-14] MEDS: KEFLEX PO SCH (09:05)
[2018-01-14] MEDS: LOVENOX SUBCUT SCH (09:06)
--- NOTE | 2018-01-14 11:08 | PN ---
DATE OF SERVICE: 01/13/18 SUBJECTIVE: The patient leg swelling and redness are still resolving slowly. Left foot second toe is warm to touch and open ulcer. Healthy granulation tissue. Coughing is minimal. REVIEW OF SYSTEMS: CONSTITUTIONAL: No fever, no chills. HEENT: Normal. ENDOCRINE: No weight gain, no weight loss. CVS: No angina symptoms. No CHF symptoms. No palpitations. No atypical chest pain for CAD. No shortness of breath. No PND, no orthopnea. RESPIRATORY: No cough, no hemoptysis. GI: No nausea, no vomiting. No abdominal pain. : No hematuria. No polyuria. MUSCULOSKELETAL: No joint swelling. PSYCHIATRIC: Not anxious. No depression. No suicidal thoughts. No homicidal thoughts. SKIN: Intact. No rash. PHYSICAL EXAMINATION: V/S: Blood pressure 143/61, respiratory rate 16, heart rate 94, temperature 97.8 with saturation 96%. HEENT: Normocephalic, atraumatic. Mucosa dry. Pallor positive. No icterus. NECK: Supple. No JVD, no carotid bruit. No lymphadenopathy. LUNGS: Decreased and basilar crackles. No rales or rhonchi. HEART: S1, S2 normal. No S3. No murmur, gallop or regurgitation. ABDOMEN: Soft, nontender. Bowel sounds active. No rigidity. No rebound or guarding. No CVA tenderness. EXTREMITIES: No cyanosis, clubbing or pedal edema. Left leg warm to touch. There is an open wound on the second toe tender to touch. MUSCULOSKELETAL: No joint swelling. NEUROLOGIC: Awake, alert, oriented times three. No focal deficit. LYMPHATIC: No lymph nodes palpable. SKIN: Intact. LABS: WBC 3.91, hgb 11.11, hct 33.3, plt count 249, sodium 130, potassium 3.7, chloride 96, bicarb 23, BUN 6m creatinine 0.58. ASSESSMENT: 1. Facility acquired pneumonia right lower lobe which is getting better 2. Left foot open wound will rule out the osteomyelitis 3. ESR is elevated 4. History of hypertension 5. Peripheral vascular disease 6. Alzheimer's Dementia 7. GERD 8. Osteoarthritis 9. Schizophrenia PLAN: 1. Continue Vancomycin 2. Continue Keflex 3. DUO NEBS 4. Bone scan TIME SPENT: More than 35 minutes MTDD
[2018-01-14] MEDS: SODIUM CHLORIDE 1,000 ML IV SCH (12:23)
--- NOTE | 2018-01-14 14:15 | CT ---
EXAM: CT left tibia and fibula without contrast. HISTORY: Left lower extremity redness, warmth. COMPARISON: Ultrasound 01/10/2018. TECHNIQUE: Multiple axial images of the left tibia and fibula were obtained without intravenous cont rast. Images were reformatted in the sagittal and coronal planes. FINDINGS: The bones are demineralized. No fracture or dislocation identified. No osseous destructi on or periosteal reaction seen. Small knee joint effusion noted. There is subcutaneous edema in the distal lower leg and ankle without drainable fluid collection or subcutaneous air. Muscular compart ments appear uninvolved. Atherosclerotic calcifications are present. IMPRESSION: Subcutaneous edema of the distal lower leg without evidence for abscess or osteomyelitis.
[2018-01-14 14:17] VITALS: BP 118/72; TEMP 97.5
--- NOTE | 2018-01-17 11:53 | DS ---
DATE OF SERVICE: 01/14/18 FINAL DIAGNOSIS: 1. BIBASILAR SEGMENTAL ATELECTASIS AND PNEUMONIA 2. SECONDARY RIGHT-SIDED CHEST PAIN MOST LIKELY FROM PLEURISY 3. ANEMIA 4. HYPERTENSION 5. GERD 6. CHRONIC BACK PAIN 7. DYSPHAGIA 8. LEFT HUMERUS DEFORMITY PER X-RAY 9. CHRONIC BACK PAIN 10. LEFT LOWER EXTREMITY CELLULITIS 11. LEFT SECOND TOE ULCER, NO OSTEOMYELITIS 12. HISTORY OF SCHIZOPHRENIA 13. OSTEOARTHRITIS 14. PERIPHERAL NEUROPATHY 15. CATARACT SURGERY 16. GERD 9. OCD DISCHARGE INSTRUCTIONS: 1. Discharge the patient back to long-term 2. Dr. Gee will follow the patient in long-term rounds in one week 3. Cleanse and moisturize legs twice daily 4. Labs - CBC with diff and CMP in one week 5. Vital signs daily MEDICATIONS AT DISCHARGE: Tylenol Albuterol Baclofen TUMS Celexa Clonidine Cyclobenzeprine Diltiazem Ferrous Sulfate Lasix Milk of Magnesia Potassium Zantac MEDICATION CHANGES: No Clindamycin NEW PRESCRIPTIONS: Will start Keflex 500 mg twice a day for 5 days DIET INSTRUCTIONS: Physical Science Teacher to consult and provide optimal nutritonal needs Heart Healthy Diet ACTIVITY: PT/OT please evaluate and treat May participate in long-term activity Keep legs elevated as frequently as possible SMOKING: N/A DISEASE SPECIFIC EDUCATION: Pneumonia and COPD with isolation has been discussed; left foot cellulitis, open wounds, risk of MRSA and osteomyelitis has been discussed with the family who verbalized understanding. HOSPITAL COURSE: This is an 82-year-old female discharged to [facility] has been having some cough, congestion, right-sided chest pain and was already treated for left lower extremity cellulitis with Clindamycin. As the patient was complaining of chest pain and coughing, the patient was sent to the emergency room for evaluation and found to have right lower lobe pneumonia and left lower extremity cellulitis. At that time, the patient was admitted to the hospital for IV antibiotics and breathing treatments. She was started on Rocephin and Vancomycin. Kept the left leg elevated. Breathing treatments were given. Gradually the patient started feeling better. The patient had schitzophrenia, very difficult to understand the patient but the family is very cooperative and keeps coming and helping us a lot. Gradually, the breathing was improving, cough better, redness and swelling in the left lower extremity was getting better. However, the left second toe has an ulcer so we wanted to make sure there was no osteomyelitis. ESR was done which was high at 49. X-ray of the foot was done which showed some soft tissue swelling and infection. Bone scan was done which did not show any acute infection but the patient's left leg somehow has been hotter than the right leg and more swelling than the right leg. At that time, CT of the left leg was done which again showed and confirmed soft tissue swelling and cellulitis is getting better. As the patient's condition was gradually improving and feeling better, no cough, no fever, hemoglobin and hematocrit have been stable, the patient is being discharged to [facility]. TIME SPENT: MORE THAN 65 MINUTES RICHARD
== END 2018-01-14 16:25 | DRG 194 ==
LOC: ED 13:06 → MEDSURG B 17:00
PROVIDERS: ADMIT Emergency Medicine; ATTEND Emergency Medicine
DX: J18.1 Lobar pneumonia, unspecified organism (principal); L03.116 Cellulitis of left lower limb; J98.11 Atelectasis; L97.529 Non-pressure chronic ulcer of other part of left foot with unspecified severity; R07.9 Chest pain, unspecified; S93.145A Subluxation of metatarsophalangeal joint of left lesser toe(s), initial encounter; R09.1 Pleurisy; D64.9 Anemia, unspecified; I10 Essential (primary) hypertension; M25.519 Pain in unspecified shoulder; M54.9 Dorsalgia, unspecified; G89.29 Other chronic pain; I73.9 Peripheral vascular disease, unspecified; R13.10 Dysphagia, unspecified; G30.9 Alzheimer's disease, unspecified; F02.80 Dementia in other diseases classified elsewhere, unspecified severity, without behavioral disturbance, psychotic disturbance, mood disturbance, and anxiety; F20.9 Schizophrenia, unspecified; F42.9 Obsessive-compulsive disorder, unspecified; M19.90 Unspecified osteoarthritis, unspecified site; M21.922 Unspecified acquired deformity of left upper arm; G62.9 Polyneuropathy, unspecified; M47.9 Spondylosis, unspecified; K21.9 Gastro-esophageal reflux disease without esophagitis; E87.6 Hypokalemia; Y95 Nosocomial condition; Z79.899 Other long term (current) drug therapy
CPT/HCPCS: 36415; 80053; 80202; 81001; 82550; 83605; 84484; 85025; 85651; 87040; 87081; 87086; 87502; 93005; 93010; 94640; 96365; 99284

== ENCOUNTER 2018-08-29 09:46 | Inpatient (IN) ==
[2018-08-29] MEDS ORDERED: SODIUM CHLORIDE 1,000 ML IV STA (09:49)
--- NOTE | 2018-08-29 10:39 | CT ---
EXAM: CT head without contrast. HISTORY: Altered mental status. COMPARISON: 12/21/2017. TECHNIQUE: Multiple axial images of the brain were obtained from the skull base through the vertex w ithout intravenous contrast. Multiplanar reformats were provided. FINDINGS: There is no intracranial hemorrhage or extraaxial collection. The herzog-white differentiat ion is maintained without evidence for acute large vascular territory infarction. There are areas of periventricular and subcortical white matter low attenuation. The cortical sulci and cerebral ventr icles are symmetrically enlarged. The basal cisterns are well visualized. There is no hydrocephalus , mass effect, or midline shift. The paranasal sinuses and mastoid air cells are clear. The calvari um is intact. Since the prior study, there has been no significant interval change. IMPRESSION: 1. No acute intracranial abnormality. 2. Chronic small vessel ischemic changes and atrophy.
--- NOTE | 2018-08-29 10:40 | CT ---
EXAM: CT chest without contrast. HISTORY: Cough. Altered mental status. Hypertension. Decreased oxygen saturation. COMPARISON: Chest radiograph 01/13/2018. Chest CT 05/18/2017. TECHNIQUE: Multiple axial images of the chest were obtained without intravenous contrast. Images we re reformatted in the sagittal and coronal planes. FINDINGS: Evaluation for lymphadenopathy is limited by lack of intravenous contrast. Heart is enlarged. Atherosclerotic calcifications present. Ascending thoracic aorta measures up to 3.8 cm diameter. No significant pericardial effusion identified. Small to moderate bilateral pleural effusions present. Ground-glass opacities seen in both lungs wit h suggestion of mild interlobular septal thickening at the right apex. Mild dependent consolidation seen in the lower lobes. No pneumothorax identified. Suspect old sternal body fracture. Old proximal left humeral fracture noted with plate and screw fix ation of the humeral diaphysis incompletely imaged. Multilevel thoracolumbar vertebral compression d eformities noted, moderate at T3, severe at T8, severe at T11 on mild to T12, severe at L1, and moder ate at L2. L3 is not well characterized.. Limited images of the upper abdomen demonstrate cholelithiasis and general mesenteric edema and possi ble ascites. IMPRESSION: Findings suggest pulmonary edema.
--- NOTE | 2018-08-29 11:46 | ED.PDOC ---
General ED Provider: Dr. AVELINA STEPHEN Chief Complaint: Respiratory Complaint Stated Complaint: LOW O2 SAT, HIGH BLOOD PRESSURE , ALTERED MENTAL STATE ONSET POSSIBLE 1 DAY ARRIVED ALTERED AROUSABLE DRY CLINICALLY NO RESP DISTRESS ON ARRIVAL. ON ARRIVAL AND ENROUTE BLOOD PRESSURE WAS NOT ELEVATED . Time Seen by Physician: 09:50 (SEEN WITH MEÑO LILLY ) Mode of Arrival: Stretcher Information Source: Assisted Exam Limitations: No limitations Primary Care Provider: BALA VILLALOBOS Nursing and Triage Documentation Reviewed and Agree: Yes Does patient meet sepsis criteria?: No System Inflammatory Response Syndrome: Not Applicable Sepsis Protocol: For patient's 13 years and over: Temp is 96.8 and below OR 101 and greater Pulse >90 BPM Resp >20/minute Acutely Altered Mental Status Are patient's symptoms suggestive of a new infection, such as: -Pneumonia -Skin, Soft Tissue -Endocarditis -UTI -Bone, Joint Infection -Implantable Device -Acute Abdominal Infection -Wound Infection -Meningitis -Blood Stream Catheter Infection -Unknown Respiratory Complaint Exam - Respiratory Complaint/Exam Onset/Duration: TODAY AT CORRECTION Symptoms Are: Still present, Resolved Timing: Intermittent Initial Severity: Mild Current Severity: None Location: Chest Character: Reports: Non-productive cough Alleviating: Reports: Spontaneous resolution Associated Signs and Symptoms: Reports: Dyspnea. Denies: Rapid breathing, Fever , Chills, Chest pain, Pleuritic chest pain, Wheezing, Hemoptysis, Dizziness, Calf pain, Calf swelling, Edema, URI, Nasal congestion, Hoarseness, Sinus discomfort, Vomiting, Sore throat, Weight loss, Decreased oral intake, Increased thirst, Increased appetite, Increased urination History of Healthcare-Acquired Pneumonia: No Related Surgical History: Reports: None Pulmonary Embolism Risk Factors: Bedrest Cardiac Risk Factors: Reports: Hypertension Pseudomonas Risk Factors: Reports: None Tuberculosis Risk Factors: Reports: Communal living Status Asthmaticus Risk Factors: Reports: None Recent Stress Test: No Recent Echo/LV Function: No Current Antibiotic Use: No Current Asthma Medication Use: No Respiratory Distress: None (AT ARRIVAL) Dysphagia Present: No Stridor Present: No (AT ARRIVALAND THROUGH OUT) JVD Present: No Accessory Muscle Use: No Retractions: Not Present Sinus Tenderness: None Grunting Respirations: No Kussmaul Respirations: No Differential Diagnoses: Asthma, CHF, Pulmonary Edema, COPD Exacerbation, [place], Pneumonia, Pneumothorax, Bronchitis, URI, Lower Resp. Infection Quality Indicators For Pneumonia: Antibiotics in 6hr-admit, SpO2 assessed, Mental status assessed Non-Traumatic Chest Pain Syncope: EKG Performed Review of Systems - Review Of Systems Constitutional: Reports: Malaise Eyes: Reports: No symptoms Ears, Nose, Mouth, Throat: Reports: No symptoms Respiratory: Reports: Cough, Short of air (NOT ON ARRIVAL) Cardiac: Reports: No symptoms GI: Reports: No symptoms : Reports: No symptoms Musculoskeletal: Reports: No symptoms Skin: Reports: No symptoms Neurological: Reports: Other (ALTERED MENTAL STATE WITHOUT DEFICITS ) Endocrine: Reports: No symptoms Hematologic/Lymphatic: Reports: No symptoms All Other Systems: Reviewed and Negative Past Medical History - Past Medical History Previously Healthy: No Endocrine: Reports: None Cardiovascular: Reports: Hypertension Respiratory: Reports: None Hematological: Reports: None Gastrointestinal: Reports: GERD Genitourinary: Reports: None Neuro/Psych: Reports: Schizophrenia, Dementia, Other (OCD ) Musculoskeletal: Reports: Arthritis, Back Pain Cancer: Reports: Unknown Last Menstrual Period: menopause Other Pertinent Past Medical History: OCD,OSTEOARTHRITIS,DEMENTIA,DYSPHAGIA, CHRONIC BACK ISSUES, - Surgical History General Surgical History: Reports: Unknown - Family History Family History: Reports: Unknown - Social History Smoking Status: Former smoker Hx Substance Use: No Alcohol Screening: None Physical Exam - Physical Exam Appearance: Ill-appearing Ill-appearing: Moderate Eyes: MARTINA, EOMI, Conjunctiva clear ENT: Ears normal, Nose normal, Oropharynx normal Respiratory: Rhonchi Cardiovascular: RRR, Pulses normal, No rub, No murmur GI/: Soft, Nontender, No masses, Bowel sounds normal, No Organomegaly Musculoskeletal: Normal strength, ROM intact, No edema, No calf tenderness Skin: Warm, Dry, Normal color Neurological: Motor intact, Reflexes intact, Alert to verbal Psychiatric: Affect appropriate, Mood appropriate Interpretation - Radiology Interpretation Radiology Interpretation By: Radiologist Radiology Results: Positive Exam Interpreted: CT Scan (PULMONARY EDEMA) - 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: Other (ATRIAL FLUTTER) - EKG Interpretation ST Segment: Other (ATRIAL FLUTTER) Re-Evaluation - Re-Evaluation Time of Re-Evaluation: 12:00 Status: Improved Vital Signs Stable: Yes Pain Level: 0 Appearance: NAD Lungs: Clear Skin: Warm and Dry Neuro: Other (alert to family) CV: RRR - Re-Evaluation Time of Re-Evaluation: 14:39 Status: Improved Vital Signs Stable: Yes Appearance: NAD Skin: Warm and Dry Neuro: Alert and Oriented X3 Physician Notification - Case Discussed Physician Notified: [email or web address] Time of Notification: 14:40 Admit To: Inpatient Critical Care Note - Critical Care Note Total Time (mins): 0 Course - Course Hematology/Chemistry: 08/29/18 10:05 08/29/18 10:05 Orders, Labs, Meds: Lab Review 08/29/18 08/29/18 08/29/18 09:48 10:05 10:05 WBC 4.25 L RBC 4.18 L Hgb 11.4 L Hct 35.2 L MCV 84.2 MCH 27.3 MCHC 32.4 RDW Coeff of Martha 13.0 Plt Count 179 Immature Gran % (Auto) 0.2 Neut % (Auto) 84.2 Lymph % (Auto) 8.5 L [place] % (Auto) 7.1 Eos % (Auto) 0.0 Baso % (Auto) 0.0 Immature Gran # (Auto) 0.0 Neut # (Auto) 3.6 Lymph # (Auto) 0.4 L [place] # (Auto) 0.3 L Eos # (Auto) 0.0 Baso # (Auto) 0.0 PT 11.4 H INR 1.14 APTT 25.3 Puncture Site R rad O2 Saturation 79.0 L ABG pH 7.442 ABG pCO2 54.0 H ABG pO2 43.0 L* ABG HCO3 36.9 H ABG Total CO2 39 H ABG Base Excess 13 H Juan Manuel Test + FiO2 % 21.0 Sodium Potassium Chloride Carbon Dioxide Anion Gap BUN Creatinine Estimated GFR (MDRD) BUN/Creatinine Ratio Glucose Lactic Acid Calcium Total Bilirubin AST ALT Alkaline Phosphatase Total Creatine Kinase Troponin I Total Protein Albumin Globulin Albumin/Globulin Ratio Procalcitonin TSH Free T4 Urine Color Urine Clarity Urine pH Ur Specific [place] Urine Protein Urine Glucose (UA) Urine Ketones Urine Blood Urine Nitrite Urine Bilirubin Urine Urobilinogen Ur Leukocyte Esterase Ur Microscopic Indic Urine Microscopic RBC Urine Microscopic WBC Ur Squamous Epith Cells Ur Transition Epith Cell Ur Renal Epithelial Cell Calcium Phosphate Cryst Calcium Oxalate Crystal Cystine Crystals Uric Acid Crystals Triple Phos Crystals Tyrosine Crystals Other Crystals Amorphous Sediment Urine Bacteria Fatty Casts Hyaline Casts Granular Casts Fine Granular Casts Coarse Granular Casts Waxy Casts RBC Casts Other Casts Urine Starch Urine Mucus Urine Trichomonas Urine Yeast Urine Sperm Ur Oval Fat Bodies 12/28/18 12/28/18 12/28/18 10:05 10:05 10:05 WBC RBC Hgb Hct MCV MCH MCHC RDW Coeff of Martha Plt Count Immature Gran % (Auto) Neut % (Auto) Lymph % (Auto) [place] % (Auto) Eos % (Auto) Baso % (Auto) Immature Gran # (Auto) Neut # (Auto) Lymph # (Auto) [place] # (Auto) Eos # (Auto) Baso # (Auto) PT INR APTT Puncture Site O2 Saturation ABG pH ABG pCO2 ABG pO2 ABG HCO3 ABG Total CO2 ABG Base Excess Juan Manuel Test FiO2 % Sodium 129.5 L Potassium 3.39 L Chloride 86.7 L Carbon Dioxide 37.4 H Anion Gap 8.79 BUN 13.6 Creatinine 0.43 L Estimated GFR (MDRD) 140.00 BUN/Creatinine Ratio 31.62 Glucose 117.4 H Lactic Acid 1.44 Calcium 8.85 Total Bilirubin 1.34 H AST 141.5 H ALT 95.4 H Alkaline Phosphatase 122.8 Total Creatine Kinase 74.2 Troponin I 0.026 Total Protein 7.66 Albumin 3.87 Globulin 3.79 Albumin/Globulin Ratio 1.02 Procalcitonin < 0.05 TSH 6.330 H Free T4 Urine Color Urine Clarity Urine pH Ur Specific [place] Urine Protein Urine Glucose (UA) Urine Ketones Urine Blood Urine Nitrite Urine Bilirubin Urine Urobilinogen Ur Leukocyte Esterase Ur Microscopic Indic Urine Microscopic RBC Urine Microscopic WBC Ur Squamous Epith Cells Ur Transition Epith Cell Ur Renal Epithelial Cell Calcium Phosphate Cryst Calcium Oxalate Crystal Cystine Crystals Uric Acid Crystals Triple Phos Crystals Tyrosine Crystals Other Crystals Amorphous Sediment Urine Bacteria Fatty Casts Hyaline Casts Granular Casts Fine Granular Casts Coarse Granular Casts Waxy Casts RBC Casts Other Casts Urine Starch Urine Mucus Urine Trichomonas Urine Yeast Urine Sperm Ur Oval Fat Bodies 08/29/18 08/29/18 08/29/18 10:05 12:14 13:20 WBC RBC Hgb Hct MCV MCH MCHC RDW Coeff of Martha Plt Count Immature Gran % (Auto) Neut % (Auto) Lymph % (Auto) [place] % (Auto) Eos % (Auto) Baso % (Auto) Immature Gran # (Auto) Neut # (Auto) Lymph # (Auto) [place] # (Auto) Eos # (Auto) Baso # (Auto) PT INR APTT Puncture Site Rbrach O2 Saturation 93.0 L ABG pH 7.518 H* ABG pCO2 43.5 ABG pO2 59.0 L* ABG HCO3 35.3 H ABG Total CO2 37 H ABG Base Excess 12 H Juan Manuel Test FiO2 % 21.0 Sodium Potassium Chloride Carbon Dioxide Anion Gap BUN Creatinine Estimated GFR (MDRD) BUN/Creatinine Ratio Glucose Lactic Acid Calcium Total Bilirubin AST ALT Alkaline Phosphatase Total Creatine Kinase Troponin I Total Protein Albumin Globulin Albumin/Globulin Ratio Procalcitonin TSH Free T4 1.29 Urine Color Cancelled Urine Clarity Cancelled Urine pH Cancelled Ur Specific [place] Cancelled Urine Protein Cancelled Urine Glucose (UA) Cancelled Urine Ketones Cancelled Urine Blood Cancelled Urine Nitrite Cancelled Urine Bilirubin Cancelled Urine Urobilinogen Cancelled Ur Leukocyte Esterase Cancelled Ur Microscopic Indic Cancelled Urine Microscopic RBC Cancelled Urine Microscopic WBC Cancelled Ur Squamous Epith Cells Cancelled Ur Transition Epith Cell Cancelled Ur Renal Epithelial Cell Cancelled Calcium Phosphate Cryst Cancelled Calcium Oxalate Crystal Cancelled Cystine Crystals Cancelled Uric Acid Crystals Cancelled Triple Phos Crystals Cancelled Tyrosine Crystals Cancelled Other Crystals Cancelled Amorphous Sediment Cancelled Urine Bacteria Cancelled Fatty Casts Cancelled Hyaline Casts Cancelled Granular Casts Cancelled Fine Granular Casts Cancelled Coarse Granular Casts Cancelled Waxy Casts Cancelled RBC Casts Cancelled Other Casts Cancelled Urine Starch Cancelled Urine Mucus Cancelled Urine Trichomonas Cancelled Urine Yeast Cancelled Urine Sperm Cancelled Ur Oval Fat Bodies Cancelled 08/29/18 13:59 WBC RBC Hgb Hct MCV MCH MCHC RDW Coeff of Martha Plt Count Immature Gran % (Auto) Neut % (Auto) Lymph % (Auto) [place] % (Auto) Eos % (Auto) Baso % (Auto) Immature Gran # (Auto) Neut # (Auto) Lymph # (Auto) [place] # (Auto) Eos # (Auto) Baso # (Auto) PT INR APTT Puncture Site O2 Saturation ABG pH ABG pCO2 ABG pO2 ABG HCO3 ABG Total CO2 ABG Base Excess Juan Manuel Test FiO2 % Sodium Potassium Chloride Carbon Dioxide Anion Gap BUN Creatinine Estimated GFR (MDRD) BUN/Creatinine Ratio Glucose Lactic Acid Calcium Total Bilirubin AST ALT Alkaline Phosphatase Total Creatine Kinase Troponin I Total Protein Albumin Globulin Albumin/Globulin Ratio Procalcitonin TSH Free T4 Urine Color Yellow Urine Clarity Clear Urine pH 8.0 Ur Specific [place] 1.015 Urine Protein Negative Urine Glucose (UA) Negative Urine Ketones Negative Urine Blood Trace-intact Urine Nitrite Negative Urine Bilirubin Negative Urine Urobilinogen 0.2 Ur Leukocyte Esterase Trace Ur Microscopic Indic Urine Microscopic RBC 0-2 Urine Microscopic WBC 0-2 Ur Squamous Epith Cells 0-2 Ur Transition Epith Cell Ur Renal Epithelial Cell Calcium Phosphate Cryst Calcium Oxalate Crystal Cystine Crystals Uric Acid Crystals Triple Phos Crystals Tyrosine Crystals Other Crystals Amorphous Sediment Urine Bacteria 1+ Fatty Casts Hyaline Casts Granular Casts Fine Granular Casts Coarse Granular Casts Waxy Casts RBC Casts Other Casts Urine Starch Urine Mucus Urine Trichomonas Urine Yeast Urine Sperm Ur Oval Fat Bodies Orders Category Date Time Status ABG DRAW REQUEST Stat CARDIO 08/29/18 09:48 Completed ABG DRAW REQUEST Stat CARDIO 08/29/18 12:15 Completed EKG-(ED ONLY) Stat CARDIO 08/29/18 09:47 Completed ED IV/MEDIPORT/POWERPORT .ONCE EMERGENCY 08/29/18 09:47 Active ABG Stat LAB 08/29/18 09:48 Completed ABG Stat LAB 08/29/18 12:14 Completed BLOOD CULTURE (ED ONLY) Stat LAB 08/29/18 10:05 Received CBC W/ AUTO DIFF Stat LAB 08/29/18 10:05 Completed COMPREHENSIVE METABOLIC PANEL Stat LAB 08/29/18 10:05 Completed CREATINE KINASE Stat LAB 08/29/18 10:05 Completed FREE T4 (FREE THYROXINE) Stat LAB 08/29/18 10:05 Completed LACTIC ACID Stat LAB 08/29/18 10:05 Completed MOLECULAR GROUP A STREP Stat LAB 08/29/18 10:49 Completed PARTIAL THROMBOPLASTIN TIME Stat LAB 08/29/18 10:05 Completed PROCALCITONIN Stat LAB 08/29/18 10:05 Completed PT WITH INR Stat LAB 08/29/18 10:05 Completed THYROID STIMULATING HORMONE Stat LAB 08/29/18 10:05 Completed TROPONIN I Stat LAB 08/29/18 10:05 Completed URINALYSIS C & S IF INDICATED Routine LAB 08/29/18 13:59 Completed URINE CULTURE Routine LAB 08/29/18 14:07 Received 0.9 % Sodium Chloride [Saline Flush] MEDS 08/29/18 09:47 Active 1 syr IVF PRN PRN Ceftriaxone Sodium [Rocephin] MEDS 08/29/18 12:09 Discontinued 1 gm .ROUTE .STK-MED ONE Ceftriaxone Sodium [Rocephin] 1 gm MEDS 08/29/18 11:50 Discontinued 0.9 % Sodium Chloride [Sodium Chloride] 50 ml IV ONCE Furosemide [Lasix] MEDS 08/29/18 11:52 Discontinued 40 mg IVP ONCE STA Sodium Chloride 0.9% [Sodium Chloride] 1,000 ml MEDS 08/29/18 09:49 Active IV 125 mls/hr CT CHEST W/O CONTRAST Stat RADS 08/29/18 09:[address] HEAD W/O CONTRAST Stat RADS 08/29/18 09:49 Completed Medications Generic Name Dose Route Start Last Admin Trade Name Freq PRN Reason Stop Dose Admin Sodium Chloride 1,000 mls @ 125 mls/hr 08/29/18 09:49 08/29/18 11:28 Sodium Chloride IV 08/29/18 17:48 125 mls/hr .Q8H STA Administration Sodium Chloride 1 syr 08/29/18 09:47 08/29/18 11:28 Saline Flush IVF 1 syr PRN PRN Administration To flush IV Discontinued Medications Generic Name Dose Route Start Last Admin Trade Name Freq PRN Reason Stop Dose Admin Furosemide 40 mg 08/29/18 11:52 08/29/18 12:25 Lasix IVP 08/29/18 11:53 40 mg ONCE STA Administration Ceftriaxone Sodium 1 gm/ 50 mls @ 75 mls/hr 08/29/18 11:50 08/29/18 12:26 Sodium Chloride IV 08/29/18 12:29 75 mls/hr ONCE STA Administration Vital Signs: Temp Pulse Resp BP Pulse Ox 08/29/18 12:18 88 20 99 08/29/18 09:46 98.1 F 91 H 23 98/68 90 L Departure - Departure Time of Disposition: 14:40 (meño salinas and celsa discueed and we confirmed DNR ORDER REULT OF ABG AND OTHER LABS FULLY DISCUSSED FAMILY DECLINED INTUBATION ON MULTIPLE DISCUSSIONS) Disposition: ADMITTED INPATIENT Discharge Problem: Atrial flutter Qualifiers: Atrial flutter type: typical Qualified Code(s): I48.3 - Typical atrial flutter Pulmonary edema Qualifiers: Chronicity: acute Qualified Code(s): J81.0 - Acute pulmonary edema Instructions: Atrial Flutter (ED) Condition: Stable Pt referred to PMD for follow-up: Yes IPMP verified?: No Additional Instructions: Please call your Family Physician as soon as possible to schedule a follow-up appointment. Allergies/Adverse Reactions: Allergies Bleach (Sodium Hypochlorite) Adverse Reaction (Verified 08/29/18 10:08) orange juice Adverse Reaction (Verified 08/29/18 10:08) Penicillins Adverse Reaction (Verified 08/29/18 10:08) Home Medications: Ambulatory Orders Acetaminophen [Tylenol Extra Strength] 500 mg PO Q4HR PRN 05/18/17 Albuterol Sulfate 0.083% Neb [Albuterol 0.083% Neb] 1 vial NEB RTQ6H PRN Calcium Carbonate [Tums] 200 mg PO Q4H PRN 05/18/17 Citalopram Hydrobromide [Celexa] 5 mg PO BEDTIME 05/18/17 Clonidine HCl 0.1 mg PO BID 05/18/17 Cyclobenzaprine HCl 5 mg PO Q12H PRN 05/18/17 Diltiazem HCl [Diltiazem 24Hr Cd] 180 mg PO DAILY 05/18/17 Furosemide 20 mg PO BID 05/18/17 Magnesium Hydroxide [Milk of Magnesia] 30 ml PO DAILY PRN 05/18/17 Potassium Chloride 20 meq PO DAILY 05/18/17 Ranitidine HCl [Zantac] 150 mg PO BIDAC 05/18/17 Sennosides/Docusate Sodium [Senna-S Tablet] 1 each PO DAILY 05/18/17 Baclofen 10 mg PO Q8H PRN 12/21/17 Nystatin [Nystop Powder] 1 applic TP Q8HR PRN 08/29/18 Disposition Discussed With: Family
[2018-08-29] MEDS ORDERED: ROCEPHIN 1 GM in SODIUM CHLORIDE 50 ML IV STA ×2 (11:50→14:35)
[2018-08-29] MEDS ORDERED: LASIX IVP STA (11:52)
[2018-08-29] MEDS ORDERED: ROCEPHIN ONE (12:09)
[2018-08-29] MEDS ORDERED: SODIUM CHLORIDE 1,000 ML IV SCH (15:00)
[2018-08-29 16:23] VITALS: BMI 23.6
[2018-08-29] MEDS: ZANTAC PO SCH (16:38)
[2018-08-29] MEDS: DUONEB NEB SCH ×2 (16:55→22:08)
[2018-08-29] MEDS: LASIX IVP SCH (18:29)
[2018-08-29] MEDS ORDERED: LOVENOX SUBCUT SCH ×2 (21:00)
[2018-08-29] MEDS: CARDIZEM PO SCH (21:06)
--- NOTE | 2018-08-30 01:11 | CT ---
Exam: CT of the abdomen and pelvis without contrast History: Abdominal distension Technique: [address] of the abdomen and pelvis without intravascular contrast FINDINGS: The lung bases show small bilateral pleural effusions and adjacent atelectasis. The abdom inal study is limited secondary to absence of intravascular contrast, paucity of intra-abdominal fat and artifact from arm positioning over the abdomen. Hardware in the right wrist and left are also cr eate artifact. Small ascites is present. Multiple cholelithiasis without obvious pericholecystic in flammation or abnormal gallbladder distension. No significant liver abnormality. The adrenals, panc reas and spleen are unremarkable. The stomach and hiatus are unremarkable. Kidneys and proximal col lecting system are unremarkable. Mild gaseous bowel distension without fluid distension or obstructi ve transition. Heavy atherosclerotic calcification of the aorta without aneurysm. Pelvic genitourinary structures appear normal. Colonic diverticulosis of the sigmoid. No inflammato ry change in the pelvic fat. No acute abnormality of the abdominal or pelvic skeleton. Multilevel t horacic and lumbar chronic fracture deformities of varying severity. Impression: 1. Technically inhibited study. 2. No bowel or urinary obstruction is seen 3. Nonspecific gaseous small intestine distension 4. Small ascites 5. Cholelithiasis without CT evidence of cholecystitis 6. Colonic diverticulosis
[2018-08-30] MEDS: DUONEB NEB SCH ×4 (05:25→22:48)
[2018-08-30] MEDS: LASIX IVP SCH ×2 (05:34→17:40)
[2018-08-30] MEDS: ZANTAC PO SCH ×2 (05:34→17:40)
[2018-08-30] MEDS ORDERED: POTASSIUM CHL 10% ORAL SOL PO SCH (06:30)
[2018-08-30] MEDS ORDERED: K-DUR PO SCH (08:00)
[2018-08-30] MEDS ORDERED: NON-FORMULARY MEDICATION (Potassium Chloride [Potassium Chloride] 20 MEQ) PO SCH (09:00)
[2018-08-30] MEDS ORDERED: CARDIZEM CD PO SCH (09:00)
[2018-08-30] MEDS: CARDIZEM PO SCH ×2 (09:27→21:44)
[2018-08-30] MEDS: LOVENOX SUBCUT SCH (09:27)
[2018-08-30] MEDS: K-DUR PO SCH ×4 (12:23→21:44)
[2018-08-30] MEDS: COZAAR PO SCH ×2 (15:00→21:44)
[2018-08-30] MEDS ORDERED: POTASSIUM CHL 10% ORAL SOL ONE (21:41)
[2018-08-30] MEDS: CATAPRES PO SCH (21:43)
[2018-08-31] MEDS: DUONEB NEB SCH ×4 (05:08→22:51)
--- NOTE | 2018-08-31 05:40 | DI ---
EXAM: Chest, single view 08/30/2018 HISTORY: Congestive heart failure COMPARISON: 08/21/2018 FINDINGS / IMPRESSION: Cardiomediastinal contours appear enlarged. There is pulmonary edema with ce ntral pulmonary vascular congestion. Bilateral pleural effusions. No pneumothorax. These findings suggestive of congestive heart failure. Severe atherosclerotic vascular disease.
[2018-08-31] MEDS: LASIX IVP SCH (05:54)
[2018-08-31] MEDS: ZANTAC PO SCH ×2 (05:54→17:03)
[2018-08-31] MEDS ORDERED: K-DUR PO SCH (08:00)
[2018-08-31] MEDS: CATAPRES PO SCH ×2 (08:47→21:48)
[2018-08-31] MEDS: LOVENOX SUBCUT SCH (08:48)
[2018-08-31] MEDS: COZAAR PO SCH ×2 (08:48→21:48)
[2018-08-31] MEDS: CARDIZEM PO SCH ×2 (08:48→21:48)
[2018-08-31] MEDS ORDERED: DECADRON 4 MG/ML SDV IM STA (11:29)
[2018-08-31] MEDS: LOTRISONE 45 GM TP SCH ×2 (15:07→21:49)
[2018-09-01] MEDS: DUONEB NEB SCH ×3 (04:40→21:10)
[2018-09-01] MEDS: ZANTAC PO SCH ×2 (05:39→18:12)
[2018-09-01] MEDS: DEMADEX PO SCH (05:39)
[2018-09-01] MEDS ORDERED: DECADRON 4 MG/ML SDV IM ONE (09:00)
[2018-09-01] MEDS: K-DUR PO SCH (09:42)
[2018-09-01] MEDS: CARDIZEM PO SCH ×2 (09:42→20:22)
[2018-09-01] MEDS: CATAPRES PO SCH (09:43)
[2018-09-01] MEDS: LOTRISONE 45 GM TP SCH ×2 (09:43→20:23)
[2018-09-01] MEDS: COZAAR PO SCH ×2 (09:43→20:22)
--- NOTE | 2018-09-01 10:06 | ECHO2D ---
Date of Exam: 08/30/18 Ordering Physician: DR. SHAD WHITMAN Room #: SCU 2 Reason for Echo: CHF M-Mode Normal Adult Results LV Dimensions Normal Adult Results AoV Opening excursions >1.6 >1.6 LVEDD-base- 3.5-5.8 5.4 Ao root dimensions 2.0-3.7 3.1 LVESD-base- 3.1-4.6 L. Atrium dimensions 1.9-3.8 5.0 Post. Wall thickness 0.8-1.1 1.2 IV septum (thickness) 0.7-1.2 1.3 Post. Wall excursion 0.72-1.3 0.6 Septal motion 0.2 Systolic motion R. Ventricular cavity 1.5-2.0 3.0 LVEF 60% 25% Paradoxical septal wall motion NORMAL 2-D : HYPOKINETIC LEFT VENTRICLE/ ENLARGED RIGHT VENTRICLE AND LEFT ATRIAL CAVITIES, NO EFFUSION, NO THROMBUS, NORMAL LEFT VENTRICLE SIZE, CALCIFIC AORTIC VALVES, COLOR FLOW: MODERATE TRICUSPID REGURGITATION, MITRAL REGURGITATION AND AORTIC REGURGITATION M-MODE: MV: NORMAL AV: NORMAL TV: NORMAL PV: CHAMBER SIZE: ENLARGED LEFT ATRIAL AND RIGHT VENTRICLE CAVITIES WALL MOTION: HYPOKINETIC LEFT VENTRICLE PERICARDIUM: NORMAL INTERPRETATION: 1. LEFT VENTRICULAR HYPERTROPHY WITH ENLARGED LEFT ATRIAL CAVITY 2. ENLARGED RIGHT VENTRICLE CAVITY 3. HYPOKINETIC LEFT VENTRICLE WITH EJECTION FRACTION 25% MTDD
[2018-09-01] MEDS ORDERED: HALDOL IM STA (11:43)
[2018-09-01] MEDS: LOVENOX SUBCUT SCH (12:27)
[2018-09-01] MEDS: GENTAMICIN SULFATE 80 MG in SODIUM CHLORIDE 50 ML IV SCH ×2 (12:32→20:21)
[2018-09-01] MEDS: HALDOL PO SCH (20:21)
[2018-09-02] MEDS: DUONEB NEB SCH ×4 (04:30→20:35)
[2018-09-02] MEDS: DEMADEX PO SCH (06:13)
[2018-09-02] MEDS: ZANTAC PO SCH ×2 (06:13→17:32)
[2018-09-02] MEDS: GENTAMICIN SULFATE 80 MG in SODIUM CHLORIDE 50 ML IV SCH ×2 (08:56→20:58)
[2018-09-02] MEDS: K-DUR PO SCH (09:02)
[2018-09-02] MEDS: HALDOL PO SCH ×2 (09:02→21:05)
[2018-09-02] MEDS: COZAAR PO SCH (09:03)
[2018-09-02] MEDS: LOTRISONE 45 GM TP SCH ×2 (09:03→21:06)
[2018-09-02] MEDS: CARDIZEM PO SCH ×2 (09:03→21:05)
[2018-09-02] MEDS: LEXAPRO PO SCH (09:03)
[2018-09-02] MEDS: LOVENOX SUBCUT SCH (09:04)
[2018-09-02] MEDS: BACTRIM DS 800/160 MG PO SCH ×2 (13:24→21:05)
[2018-09-02] MEDS: ENTRESTO 24 MG-26 MG TABLET PO SCH ×2 (13:24→21:05)
[2018-09-03] MEDS: DUONEB NEB SCH ×3 (04:10→14:13)
[2018-09-03] MEDS: DEMADEX PO SCH (05:55)
[2018-09-03] MEDS: ZANTAC PO SCH ×2 (05:55→16:06)
[2018-09-03] MEDS: HALDOL PO SCH (09:50)
[2018-09-03] MEDS: LEXAPRO PO SCH (09:50)
[2018-09-03] MEDS: ENTRESTO 24 MG-26 MG TABLET PO SCH (09:50)
[2018-09-03] MEDS: LOTRISONE 45 GM TP SCH (09:51)
[2018-09-03] MEDS: K-DUR PO SCH (09:51)
[2018-09-03] MEDS: CARDIZEM PO SCH (09:51)
[2018-09-03] MEDS: LOVENOX SUBCUT SCH (09:56)
[2018-09-03] MEDS: BACTRIM DS 800/160 MG PO SCH (09:56)
[2018-09-03] MEDS: GENTAMICIN SULFATE 80 MG in SODIUM CHLORIDE 50 ML IV SCH (13:58)
[2018-09-03 14:36] VITALS: BP 108/64; TEMP 98
--- NOTE | 2018-09-04 13:08 | CONS ---
DATE OF CONSULTATION: 08/30/18 REASON FOR CONSULTATION: CHF HISTORY OF PRESENT ILLNESS: 83-year-old -Dominican female was hospitalized from the senior living because of altered mental status, low oxygen saturation, shortness of breath, low blood pressure. The patient was seen and examined in the emergency room by Dr. Felix. She was hospitalized with acute respiratory failure, pulmonary edema. The patient's ABG on room air showed p02 of 43, pc02 54, pH 7.44 with 79% saturation. History is taken from Silvestre Wallace who is one of the sons and is power of traffic law attorney for health. According to him, the patient has been in the senior living for three years and has history of problems likely congestive heart failure. Unable to take any history from the patient because of the patient's altered mental status and sleepiness. REVIEW OF SYSTEMS: CONSTITUTIONAL: No night sweats. No fatigue, malaise, lethargy. No fever or chills. HEENT: Eyes: No visual changes. No eye pain. No eye discharge. ENT: No sinus drainage. No epistaxis. No sinus pain. No sore throat. No odynophagia. No ear pain. No congestion. RESPIRATORY: No cough, no congestion. No hemoptysis. No shortness of breath. CARDIOVASCULAR: No angina symptoms. No CHF symptoms. No atypical chest pain for CAD. No palpitations. No orthopnea. GASTROINTESTINAL: No abdominal pain. No nausea or vomiting. No diarrhea or constipation. No hematemesis. No hematochezia. GENITOURINARY: No urgency. No frequency. No dysuria. No hematuria. No obstructive symptoms. No discharge. No pain. No significant abnormal bleeding. MUSCULOSKELETAL: No musculoskeletal pain. No joint swelling. NEUROLOGICAL: No headache. No neck pain. No syncope. No seizures. No dizziness. PSYCHIATRIC: Not anxious. No depression. No suicidal thoughts. No homicidal thoughts. SKIN: No rash. No lesions. No wounds. ENDOCRINE: No unexplained weight loss. No weight gain. HEMATOLOGIC/LYMPHATIC: No anemia. No purpura. No petechiae. No prolonged or excessive bleeding. No palpable lymph nodes. MEDICATIONS: Albuterol nebulizer Celexa 5 mg at bedtime Klonopin 0.1 twice a day Flexeril 5 mg b.i.d. Diltiazem 180 mg p.o. daily Lasix 20 mg twice a day Potassium 20 mEq daily Zantac 150 mg twice a day Baclofen 10 mg q.8hr ALLERGIES: BLEACH, ORANGE JUICE, PENICILLIN PAST MEDICAL HISTORY: CHF Gastroesophageal reflux disease Hypertension Chronic lung disease PAST SURGICAL HISTORY: Orthopedic surgery - pins left humerus, plate right wrist SOCIAL/PERSONAL/FAMILY HISTORY: Taken from son, the patient is a , lives in the senior living. She is a nonsmoker. No alcohol abuse. PHYSICAL EXAMINATION: GENERAL: The patient seems to be alert but sleepy, not opening her eyes but mumbling and answering some questions. VITAL SIGNS: Temperature 97.6, pulse 72, respiratory rate 24, BP 134/81, pulse ox 97% with 2L. HEENT: Normal. Looks somewhat pale. Skin is dry. NECK: Supple. No JVP, no carotid bruit. No lymphadenopathy or thyromegaly. LUNGS: Crepitations bilaterally with diminished air entry. Percussion note normal. Chest symmetrical. HEART: S1, S2, questionable S3. No murmur appreciated at the present time. No cyanosis or clubbing. No ascites. Pulses: Dorsalis pedis and posterior tibial pulses +1 bilaterally. ABDOMEN: Soft. Nontender. Bowel sounds active. No CVA tenderness. No mass felt. EXTREMITIES: Trace pedal edema. Full range of motion of all extremities, equal. NEUROLOGIC: Mental status seems to be confused some. No focal deficit. Cranial nerves II through XII are grossly intact. No headache, no double vision or headache. SKIN: Not dry. Intact. Turgor - normal. LYMPHATIC: No palpable lymph nodes/no lymphedema. MUSCULOSKELETAL: Normal joints with no swelling. Muscle tone is normal. LABS: Arterial blood gases as mentioned above showing acute respiratory failure. Hemoglobin 11.3, hematocrit 34, WBC 4,300, normal differential. Potassium 2.6, creatinine 0.6, BUN 11, glucose 121, T4 normal, TSH slightly elevated. Pro-BNP is more than 16,000. Echocardiogram was done which showed LV ejection fraction 25% with LV cavity 5.4 , LA cavity and RV cavities are enlarged. The patient has borderline LVH. ASSESSMENT: 1. CONGESTIVE HEART FAILURE 2. CARDIOMYOPATHY WITH LOW EJECTION FRACTION 3. ATRIAL FLUTTER ON ADMISSION BUT NOW PATIENT IS IN SINUS RHYTHM 4. HISTORY OF HYPERTENSION 5. SEVERE HYPOKALEMIA RECOMMENDATIONS: 1. The patient's case discussed with attending. 2. Cozaar 25 mg b.i.d. as an unloading agent. 3. Agree with decreasing the dose of Cardizem to 30 mg twice a day. 4. Agree with discontinuation of Clonidine. 5. Pro-BNP to be done on Saturday. 6. K-Dur 40 mEq every two hours times three. K-Dur 40 mEq b.i.d. after that. 7. Daily CBC, CMP. 8. Cardiac markers are negative so far. The patient's condition is otherwise stable. Discussed with the POA, Silvestre Wallace for all of patient's medical problems and ejection fraction with overall prognosis with likely chronic lung disease is poor. I will monitor the patient' s rhythm. There is no need to commit to put her on Novel blood thinners or Coumadin so far. RICHARD
--- NOTE | 2018-09-04 13:32 | CONS ---
DATE OF SERVICE: 08/31/18 CONSULT FOLLOWUP DIAGNOSIS: 1. Pulmonary edema 2. Respiratory failure 3. CHF 4. Episode of atrial flutter on admission. SUBJECTIVE: The patient today is looking a lot better. She is talkative, difficult to understand. REVIEW OF SYSTEMS: CONSTITUTIONAL: No night sweats. No fatigue, malaise, lethargy. No fever or chills. No distress. In fact, the patient's saturation on room air is 98%. HEENT: Eyes: No visual changes. No eye pain. No eye discharge. ENT: No runny nose. No epistaxis. No sinus pain. No sore throat. No odynophagia. No ear pain. No congestion. RESPIRATORY: No cough, no congestion. No hemoptysis. CARDIOVASCULAR: No angina symptoms. No CHF symptoms. No atypical chest pain for CAD. No palpitations. No shortness of breath. GASTROINTESTINAL: No abdominal pain. No nausea or vomiting. No diarrhea or constipation. No hematemesis. No hematochezia. GENITOURINARY: No urgency. No frequency. No dysuria. No hematuria. No obstructive symptoms. No discharge. No pain. No significant abnormal bleeding. MUSCULOSKELETAL: No musculoskeletal pain. No joint swelling. No arthritis. NEUROLOGICAL: No headache. No neck pain. No syncope. No seizures. No dizziness. PSYCHIATRIC: Not anxious. No depression. No suicidal thoughts. No homicidal thoughts. SKIN: No rash. No lesions. No wounds. ENDOCRINE: No unexplained weight loss. No weight gain. HEMATOLOGIC/LYMPHATIC: No anemia. No purpura. No petechiae. No prolonged or excessive bleeding. No palpable lymph nodes. PHYSICAL EXAMINATION: VITAL SIGNS: Temperature 97.4, pulse 67, respiratory rate 16, BP 120/80, pulse ox 98%. HEENT: Head normocephalic, atraumatic. Eyes: Extraocular muscles are intact. Pupils are equal, round and reactive to light and accommodation. Ears: No lesions. Nose appeared normal. Throat: No exudate or erythema. NECK: Supple. No JVD, no carotid bruit. No lymphadenopathy or thyromegaly. LUNGS: Decreased breath sounds with few crepitations at the bases. Percussion note normal. Chest symmetrical. HEART: S1, S2, no S3. No murmurs. No cyanosis or clubbing. No ascites. Pulses: Dorsalis pedis and posterior tibial pulses +1 to +2 both sides. ABDOMEN: Soft. Nontender. Bowel sounds active. No CVA tenderness. No mass felt. EXTREMITIES: No pedal edema. Full range of motion of all extremities, equal. NEUROLOGIC: No focal deficit. Cranial nerves II through XII are grossly intact. No headache, no double vision or headache. SKIN: Warm and dry. Discolored skin noted on the leg. Intact. Turgor - normal. LYMPHATIC: No palpable lymph nodes/no lymphedema. MUSCULOSKELETAL: Normal joints with no swelling. Muscle tone is normal. LABS: Hemoglobin 11.2, hematocrit 34, WBC 4,900, normal differential. Creatinine 0.4, BUN 13, potassium 4.2. ASSESSMENT: 1. RESPIRATORY FAILURE SEEMS TO HAVE RESOLVED. 2. CHF 3. CARDIOMYOPATHY WITH LOW EJECTION FRACTION 25% 4. ANEMIA 5. CHRONIC LUNG DISEASE WITH CHRONIC BRONCHITIS PLAN: 1. ABG on room air tomorrow. 2. 1/2 cc Decadron today and 1/2 cc Decadron in the morning. 3. K-Tab 20 mEq p.o. daily. 4. The patient's hypokalemia has resolved with potassium supplement. The patient seems to be candidate for Entresto. Will talk to attending about it. TIMMYD
--- NOTE | 2018-09-04 13:40 | CONS ---
DATE OF SERVICE: 09/01/18 CONSULT FOLLOWUP SUBJECTIVE: The patient was seen and examined in followup. The patient is doing a lot better. The patient is in the chair eating, is more alert, talkative with open eyes. Obviously she does not have any chest pain. No PND, no orthopnea. No palpitations. REVIEW OF SYSTEMS: CONSTITUTIONAL: No night sweats. No fatigue, malaise, lethargy. No fever or chills. HEENT: Eyes: No visual changes. No eye pain. No eye discharge. ENT: No runny nose. No epistaxis. No sinus pain. No sore throat. No odynophagia. No ear pain. No congestion. RESPIRATORY: No cough, no congestion. No hemoptysis. CARDIOVASCULAR: No angina symptoms. No CHF symptoms. No atypical chest pain for CAD. No palpitations. No shortness of breath. GASTROINTESTINAL: No abdominal pain. No nausea or vomiting. No diarrhea or constipation. No hematemesis. No hematochezia. GENITOURINARY: No urgency. No frequency. No dysuria. No hematuria. No obstructive symptoms. No discharge. No pain. No significant abnormal bleeding. MUSCULOSKELETAL: No musculoskeletal pain. No joint swelling. No arthritis. NEUROLOGICAL: No headache. No neck pain. No syncope. No seizures. No dizziness. PSYCHIATRIC: Not anxious. No depression. No suicidal thoughts. No homicidal thoughts. SKIN: No rash. No lesions. No wounds. ENDOCRINE: No unexplained weight loss. No weight gain. HEMATOLOGIC/LYMPHATIC: No anemia. No purpura. No petechiae. No prolonged or excessive bleeding. No palpable lymph nodes. PHYSICAL EXAMINATION: GENERAL: The patient is alert. VITAL SIGNS: Temperature 98.1, pulse 88, respiratory rate 24, BP 124/84. Pulse ox 97%. HEENT: Head normocephalic, atraumatic. Eyes: Extraocular muscles are intact. Pupils are equal, round and reactive to light and accommodation. Ears: No lesions. Nose appeared normal. Throat: No exudate or erythema. NECK: Supple. No JVD, no carotid bruit. No lymphadenopathy or thyromegaly. LUNGS: Clear to auscultation. Percussion note normal. Chest symmetrical. HEART: S1, S2, no S3. No murmurs. No cyanosis or clubbing. No ascites. Pulses: Dorsalis pedis and posterior tibial pulses +1 to +2 both sides. ABDOMEN: Soft. Nontender. Bowel sounds active. No CVA tenderness. No mass felt. EXTREMITIES: No edema. Full range of motion of all extremities, equal. NEUROLOGIC: No focal deficit. Cranial nerves II through XII are grossly intact. No headache, no double vision or headache. SKIN: Not dry. Intact. Turgor - normal. LYMPHATIC: No palpable lymph nodes/no lymphedema. MUSCULOSKELETAL: Normal joints with no swelling. Muscle tone is normal. LABS: Hemoglobin 11.1, hematocrit 34, WBC 4,700, normal differential. Creatinine 0.5, BUN 11. ASSESSMENT: 1. CHF SEEMS TO BE UNDER CONTROL. 2. THE PATIENT HAD ATRIAL FLUTTER ON ADMISSION BUT DURING THE HOSPITAL STAY, THE PAST THREE TO FOUR DAYS, THE PATIENT HAS NOT HAD ANY HISTORY OF ATRIAL FIB OR FLUTTER. 3. HISTORY OF CHF. 4. HISTORY OF RESPIRATORY FAILURE. PLAN: 1. Continue the same treatment with diuretic and unloading agents and small dose of Diltiazem. CONDITION: Stable MTDD
--- NOTE | 2018-09-04 13:51 | HP ---
DATE OF SERVICE: 08/29/18 CHIEF COMPLAINT: [facility] oxygen saturation [facility] at the [facility]. HISTORY OF PRESENT ILLNESS: The nursing staff at [facility] during the rounds found the patient to have a low oxygen saturation and very slow to respond verbally. The patient was then transported to the emergency room. The patient's speech was difficult to understand and the patient was noted to have dryness of the mouth, as well as the membranes. Vital signs showed 98.1 temperature, pulse 91, respiratory rate 23, oxygen saturation 90 at room air, blood pressure 98/68, 108 pounds, 14.5 ounces, BMI 21.9. Chest CT findings compatible with pulmonary edema. Head CT showed no acute intracranial processes. CBC 4,450 WBC, slightly below normal, hemoglobin 11.4, hematocrit 35.2, MCV 84.2, MCH 27.3. No stabs. Coagulation profile normal. INR 1.14, PTT 25.3. ABG with 02 saturation 93 at room air, pH 7.518, PCO2 43.5, PO2 59.0, HCO3 35.3, total CO2 37, base excess 12. Slightly low sodium 129, potassium 3.39, chloride 86.7. AST 141.5, ALT 95.4, NT Pro BNP 16, 300. TSH 6.330, Free T4 1.29. Procalcitonin less than 0.05. The patient was then admitted because of the lethargy and hypoxemia and acute pulmonary edema. PAST PERSONAL HISTORY: Hypertension GERD Depression Arthritis Back pain secondary to compression fractures Schizophrenia OCD History of pneumonia, but during that hospitalization the patient was afebrile. FAMILY HISTORY: Not known. SOCIAL HISTORY: The patient is a and resides [facility] the [facility] and had been for a few years according to her son. MEDICATIONS: Prior to this admission: Senna-S one daily Clonidine 0.1 mg twice a day Zantac 150 mg twice a day Extra strength Tylenol 500 mg every 4 hours as needed Calcium Carbonate, TUMS, 200 mg tablet every 4 hours prn KCL 20 mEq daily Milk of Magnesia 30 cc daily prn Lasix 20 mg twice a day Diltiazem CD 180 daily Cyclobenzaprine 5 mg every 12 hours prn Celexa 10 mg daily Albuterol 0.083% nebulizer one vial every 6 hours prn Baclofen 10 mg every 8 hours prn Nystatin Powder applied externally every 8 hours prn ALLERGIES: The patient is allergic to bleach, sodium Hypochlorite, orange juice and Penicillin. REVIEW OF SYSTEMS: CONSTITUTIONAL: The patient is not responsive or legible verbally and so systems review is available, except the patient now is responsive to pain stimulus. She does wake up when you call her name and she still closes her eyes. She doesn't follow verbal commands, such as taking a deep breath. PHYSICAL EXAMINATION: GENERAL: We have an 83 year old female admitted to the hospital because of low oxygen saturation and lethargy. The patient had a CT scan of the head, which showed no acute processes and CT scan of the chest showed pulmonary edema. When I talked to the emergency room physician who wanted to admit the patient to the hospital for the above problems, I did ask him to obtain an NT Pro BNP. He told me that he would. HEAD: Unremarkable. EYES: The patient closes her eyes and I could not examine. FACE: Symmetrical and equal with no facial weakness. No significant reaction to pressure in the maxillary sinus areas, as well as frontal. THROAT: No inflammation, tumors or exudate. NECK: No masses. No bruit. No tenderness. No rigidity. No adenopathies. CHEST: Essentially symmetrical and equal. LUNGS: Difficult to examine and I could hardly hear the breath sounds. It seemed like there is rales at the bases, but the patient doesn't take a deep breath. The patient is instructed to take a deep breath by the nurse, but the patient does not follow commands. HEART: Audible and regular. No murmurs. ABDOMEN: Soft with no tenderness, no bruit and no masses. RECTAL: Not done, as well as the breast. LOWER EXTREMITIES: The left leg has a darker reddish color, probably from chronic venous insufficiency with chronic ulceration of the second toe. The second toe is overriding the 1st one. This ulceration had been mentioned on the previous admission. The patient moves her foot, so difficult to examine pedal pulses until she is able to calm down. UPPER EXTREMITIES: Symmetrical and equal with movement. ASSESSMENT: 1. CONGESTIVE HEART FAILURE-PULMONARY EDEMA 2. HYPOXEMIA SECONDARY to #1. 3. LETHARGY, PROBABLY SECONDARY TO THE HYPOXEMIA 4. HEPATITIS, PROBABLY SECONDARY TO CONGESTIVE HEART FAILURE 5. MARKEDLY ELEVATED NT PRO BNP COMPATIBLE WITH CONGESTIVE HEART FAILURE 6. HISTORY OF HYPERTENSION 7. HISTORY OF SENILE DEMENTIA 8. BILATERAL PLEURAL EFFUSION 9. HISTORY OF HUMERAL FRACTURE LEFT SIDE, POST ORIF 10. MULTIPLE THORACOLUMBAR COMPRESSION FRACTURES, T3, T8, T11, T12, L1, L2, L3 11. CHOLELITHIASIS 12. ASCITES AND MESENTERIC EDEMA, MAYBE SECONDARY TO CONGESTIVE HEART FAILURE PROGNOSIS: Poor. The patient is a DNR. TIME SPENT: GREATER THAN 65 MINUTES MTDD
--- NOTE | 2018-09-04 14:18 | PN ---
DATE OF SERVICE: 08/30/18 The patient, today, appears much better and her face is clark and she is more responsive. Her children are around her today. I did advise them about the diagnosis consisting of congestive heart failure-pulmonary edema and that the heart ejection fraction is low at 25% according to Dr. Zavaleta. I had asked for a cardiology consultation to help me manage this patient. I did advise them that we will try to help and hopefully she would get much better and be able to return to the snf and when that would be I do not know. The patient's WBC is slightly higher than yesterday at 4,310, instead of 4,250. Hemoglobin is slightly lower by one tenth of a point, as well as the hematocrit. The MCV is 84 and the MCH is 27.3. This patient might need some iron. Platelet count is normal at 184,000. Potassium is down to 2.65, so she is given an oral potassium at 20 mEq twice a day. I had discontinued her IV yesterday, since she is in congestive heart failure. Her E GFR is 93, however this patient is very then and also 83 years of age. Total bilirubin went back to normal at 0.63. The AST is down to 94.8 from 141.5 and the ALT is down to 76.3 from 95.4. I still believe that this probably due to the congestive changes in the liver secondary to the congestive heart failure. CBC, CMP and [employer] Pro BNP is ordered for tomorrow. Some of the medications will be discontinued. Clonidine was already reduced from 0.1 twice a day to 0.05 twice a day to begin today. Baclofen, as well as the Flexeril should be discontinued. We will try to make sure the 25 Hydroxy Vitamin D. If it is very low, maybe a supplementation will be somewhat helpful. The central office inspector was consulting with the case and told me the ejection fraction is 25%. I reviewed the medications and Potassium Chloride is entered at 40 mEq p.o. twice a day and then Potassium Chloride 40 mEq p.o. every two hours. I had ordered a decreasing dose of Clonidine to 0.05 one tablet twice a day, instead of 0.1 twice a day. I will check with the nurses with regards to this order to make sure that there is no errors occurring. [facility]
--- NOTE | 2018-09-20 10:34 | CONS ---
DATE OF CONSULTATION: 08/29/19 REASON FOR CONSULTATION: CHF HISTORY OF PRESENT ILLNESS: [facility] in alertness, decreased oxygen saturation and shortness of air. REVIEW OF SYSTEMS: CONSTITUTIONAL: No night sweats. No fatigue, malaise, lethargy. No fever or chills. HEENT: Eyes: No visual changes. No eye pain. No eye discharge. ENT: No sinus drainage. No epistaxis. No sinus pain. No sore throat. No odynophagia. No ear pain. No congestion. RESPIRATORY: Cough-nonproductive, no congestion. No hemoptysis.Shortness of breath and nasal oxygen at home. CARDIOVASCULAR: No angina symptoms. No CHF symptoms. No atypical chest pain for CAD. No palpitations. No orthopnea. GASTROINTESTINAL: No abdominal pain. No nausea or vomiting. No diarrhea or constipation. No hematemesis. No hematochezia. GENITOURINARY: No urgency. No frequency. No dysuria. No hematuria. No obstructive symptoms. No discharge. No pain. No significant abnormal bleeding. Incontinence. MUSCULOSKELETAL: No musculoskeletal pain. No joint swelling. Back pain. NEUROLOGICAL: No headache. No neck pain. No syncope. No seizures. No dizziness. PSYCHIATRIC: Anxious. No depression. No suicidal thoughts. No homicidal thoughts. SKIN: No rash. No lesions. No wounds. Dry. ENDOCRINE: No unexplained weight loss. No weight gain. HEMATOLOGIC/LYMPHATIC: No anemia. No purpura. No petechiae. No prolonged or excessive bleeding. No palpable lymph nodes. MEDICATIONS: Albuterol NEB Tylenol Baclofen Celexa Clonidine Flexeril Diltiazem Lasix KCL Zantac Tums Senokot ALLERGIES: Penicillin PAST MEDICAL HISTORY/PAST SURGICAL HISTORY: Cataract removal OCD Dementia Hypertension Schizophrenia Atrial fibrillation (EKG) GERD History of UTI's Lumbar and Thoracic compression fractures. Left humeral fracture with plates. SOCIAL/PERSONAL/FAMILY HISTORY: The patient is . No history of alcohol use. Unknown history of tobacco use, perhaps former. PHYSICAL EXAMINATION: GENERAL: The patient is confused. VITAL SIGNS: Pulse 72, blood pressure 134/81, temperature 97.6, pulse ox 97%. Weight 101, BMI 23.7. HEENT: Head normocephalic, atraumatic. Eyes: Extraocular muscles are intact. Pupils are equal, round and reactive to light and accommodation. Ears: No lesions. Nose appeared normal. Throat: No exudate or erythema. NECK: Supple. No JVD, no carotid bruit. No lymphadenopathy or thyromegaly. LUNGS: Few creps left lower. Clear to auscultation. Percussion note normal. Chest symmetrical. HEART: S1, S2, no S3. Systolic murmurs. No cyanosis or clubbing. No ascites. Pulses: Dorsalis pedis and posterior tibial pulses +1 bilaterally. ABDOMEN: Soft. Nontender. Bowel sounds active. No CVA tenderness. No mass felt. No ascites. EXTREMITIES: Trace edema. Full range of motion of all extremities, equal. NEUROLOGIC: No focal deficit. Cranial nerves II through XII are grossly intact. No headache, no double vision or headache. Confusion. SKIN: Not dry. Intact. Turgor - normal. LYMPHATIC: No palpable lymph nodes/no lymphedema. MUSCULOSKELETAL: Normal joints with no swelling. Muscle tone is normal. LABS: Pro BNP 18342.00, TSH 6.330, Free Tr 1.29, Na 129.5, Potassium 3.39, chloride 86.7, Total bilirubin 1.34, AST 141.5, ALT 95.4, WBC 4.25, hgb /hct 11.4/35.2, RA ABG's Saturation 79%, pH7.442, pCO2 54, pO2 43, HCO3 36.9, Chest CT: pulmonary edema. EKG-atrial flutter. ASSESSMENT: 1. CHF/ Respiratory failure 2. Dementia 3. Hypertension 4. Atrial flutter on admission now sinus rhythm 5. Bronchitis/COPD RECOMMENDATIONS: 1. Echo cardiogram 2. Cozaar 25mg twice a day 3. Decadron 2mg IM 4. Agreed with management 5. Monitor ABG 6. DNR discussed with son/attending. MTDD
--- NOTE | 2018-10-29 13:59 | DS ---
DATE OF SERVICE: 09/03/18 PATIENT IDENTIFICATION: 87-year-old female, a resident of [facility] was found to be lethargic with markedly low oxygen saturation. She was sent to the emergency room and after evaluation was admitted to the hospital because of congestive heart failure, marked hypoxemia and lethargy. The patient had rales on both lung perez and the chest CT initially showed findings compatible with congestion - pulmonary edema. The NT-ProBNP was also elevated at 16,300. The patient was treated with fluid restriction and intravenous diuretic. Also was given oxygen because of hypoxemia. The patient gradually improved. She did have urinary tract infection growing E. coli, ESBL and was treated with Irtapenem plus Bactrim. This patient on admission was on Rocephin 1 gm daily for the next two days. Once culture was available the antibiotic was changed. The patient's appetite had improved but the patient did have some behavioral problems and was given Haldol 1 mg initially and then continued as an oral medication. The patient was seen by Dr. Zavaleta, Corporate Auditor, and managed the patient along with me. He did perform an echocardiogram showing a markedly low or depressed left ventricular ejection fraction 25%. The patient on the day of discharge 09/03/18 temperature of 98 at 2 p.m., pulse 83, blood pressure 108/64, respiratory rate 18, oxygen saturation 97 on room air. I had talked to her children that I would be sending her home. I felt the patient had improved to the point that she does not need to be in the hospital. The patient is now eating and she is not lethargic and she does move all extremities and walk with a walker with help. The patient on discharge was given the following instructions: Continue the followin medications: Tylenol, Albuterol Sulfate, Baclofen, Calcium Carbonate, Celexa, Flexeril, Diltiazem, Furosemide, Milk of Magnesia and Nystatin. Clonidine has to be stopped. This had been decreased while in the hospital. The following medications that were stopped: Celexa, Clonidine, Diltiazem CD, Furosemide and Baclofen. NEW MEDICATIONS: Lexapro 10 mg daily Haldol 1 mg twice a day Entresto 24/ twice a day Cardizem 30 mg q.12hr Demodex 20 before breakfast Bactrim DS one q.12hr for five days The patient was given a diet, regular mechanical soft with regular liquids. Contact Dr. Patterson or Trevor Rice for further orders. FINAL DIAGNOSIS: 1. HEART FAILURE, REDUCED EJECTION FRACTION, IMPROVED 2. HYPOXEMIA SECONDARY TO #1. 3. URINARY TRACT INFECTION, E. COLI, ESBL POSITIVE. 4. LETHARGY MAY BE SECONDARY TO UTI PLUS HEART FAILURE. 5. SENILE DEMENTIA. 6. HISTORY OF SCHIZOPHRENIA. 7. HISTORY OF OBSESSIVE-COMPULSIVE DISORDER. PROGNOSIS: Poor TIME SPENT: GREATER THAN 30 MINUTES MTDD
--- NOTE | 2018-10-30 14:31 | PN ---
DATE OF SERVICE: 08/31/18 SUBJECTIVE: The patient on 08/31/18 at 2 p.m. was afebrile, 97.5, pulse 83, blood pressure 90/63, respiratory rate 14, oxygen saturation 97 with 2L of nasal oxygen. Oral intake is slow as well as IV because of fluid restriction secondary to congestive heart failure. The patient was looking better and much more active and conversant. She still has rales on both lung perez. The chest x-ray done yesterday still showed pulmonary edema. No THADDEUS or ID of the urinary bacteria at this time. This patient is receiving Rocephin 1 gm intravenously daily. She was receiving most of her medications. The Clonidine however was reduced and hopefully stop this medication. The patient's Diltiazem was reduced to 30 mg q.12hr, reason congestive heart failure. The patient is receiving Lovenox 50 mg subcutaneously q.12hr. Arterial blood gases today at 08/31/18, showed some slight improvement. p02 67 from 59. 02 saturation 94 from 93 on room air. Potassium now normal 4.22 from 2.65 yesterday. AST and ALT is decreasing toward normal. GFR is normal at 126. Lungs still have rales in both lung perez. Lungs still have barely audible breath sounds and the patient doesn't take a deep breath. It appears to be fine moist rales at the bases. MTDD
--- NOTE | 2018-10-30 14:39 | PN ---
DATE OF SERVICE: 09/01/18 SUBJECTIVE: The patient had been afebrile, temperature 97.6 at 2 p.m., pulse 94, blood pressure 122/60, respiratory rate 20, oxygen saturation 97 on 2L of nasal oxygen. She is still incontinent of urine and appetite about the same or maybe better. The patient still doesn't follow verbal commands very well and auscultation revealed fine rales but difficult to appreciate. Heart is audible with good tones. Abdomen nontender. Urinalysis E. coli and sensitivity showed ESBL and sensitive to Gentamicin, Tobramycin, Nitrofurantoin, Ertapenem, Zosyn and Bactrim. Intermediate to Augmentin. Rocephin was then discontinued, changed to Ertapenem 1 gm intravenously daily plus Bactrim DS one twice a day. The patient today is alert and cheerful. The patient was given 1 mg of Haldol because of some behavioral signs and was then placed on 1 mg p.o. twice a day. Oxygen saturation was noted at 91 without oxygen. This patient is now active and talkative but not making sense very much. No edema of the legs. The patient was noted to be able to feed herself. MTDD
--- NOTE | 2018-10-30 14:43 | PN ---
DATE OF SERVICE: 09/02/18 SUBJECTIVE: The patient is up, ambulatory with help using a walker. The patient's appetite had improved and is taking medications and feeding herself. OBJECTIVE: VITAL SIGNS: 09/02/18 at 2 p.m. Temperature 98.7, pulse 80, BP 92/57, respiratory rate 16, oxygen saturation 98 on room air. Lungs have rales at the bases. The patient is somewhat able to follow verbal commands but not consistent. Echocardiogram done yesterday showed ejection fraction, left ventricular 25%. Abdomen is nontender. Lower extremities no edema. Condition improved. MTDD
== END 2018-09-03 18:20 | DRG 189 ==
LOC: ED 09:46 → SCU 15:03
PROVIDERS: ADMIT General Practice; ATTEND General Practice
DX: J81.0 Acute pulmonary edema (principal); J90 Pleural effusion, not elsewhere classified; N39.0 Urinary tract infection, site not specified; I48.3 Typical atrial flutter; I10 Essential (primary) hypertension; I50.9 Heart failure, unspecified; R41.82 Altered mental status, unspecified; R06.00 Dyspnea, unspecified; R53.81 Other malaise; R06.02 Shortness of breath; R05 Cough; B96.20 Unspecified Escherichia coli [E. coli] as the cause of diseases classified elsewhere; F03.90 Unspecified dementia, unspecified severity, without behavioral disturbance, psychotic disturbance, mood disturbance, and anxiety; K75.9 Inflammatory liver disease, unspecified
CPT/HCPCS: 36415; 80053; 80170; 81001; 82550; 82803; 83605; 83880; 84145; 84439; 84443; 84484; 84681; 85025; 85610; 85730; 87040; 87081; 87086; 87186; 87651; 93005; 93010; 94640; 96361; 96365; 99223; 99232; 99284

== ENCOUNTER 2018-09-27 14:45 | Outpatient (CLI) | END 2018-09-27 14:46 | disposition home or self-care (01) | LOC: NONPT 14:45 | PROVIDERS: ATTEND Nurse Practitioner Family | DX: N39.0 Urinary tract infection, site not specified (principal) | CPT/HCPCS: 81001 ==

== ENCOUNTER 2018-10-01 10:24 | Outpatient (CLI) | payer OTHER | END 2018-10-01 10:25 | disposition home or self-care (01) | LOC: NONPT 10:24 | PROVIDERS: ATTEND Nurse Practitioner Family | DX: N39.0 Urinary tract infection, site not specified (principal) | CPT/HCPCS: 81001; 87086 ==

== ENCOUNTER 2018-10-05 12:56 | Outpatient (CLI) | payer OTHER | END 2018-10-05 12:57 | disposition home or self-care (01) | LOC: LAB 12:56 | PROVIDERS: ATTEND Family Medicine | DX: R41.82 Altered mental status, unspecified (principal); R06.03 Acute respiratory distress | CPT/HCPCS: 81001; 87086 ==

== ENCOUNTER 2018-10-05 15:23 | Outpatient (CLI) | payer OTHER | END 2018-10-05 15:24 | disposition home or self-care (01) | LOC: LAB 15:23 | PROVIDERS: ATTEND Nurse Practitioner Family | DX: R53.83 Other fatigue (principal); Z51.81 Encounter for therapeutic drug level monitoring; Z79.899 Other long term (current) drug therapy; R41.82 Altered mental status, unspecified; R06.03 Acute respiratory distress; R06.02 Shortness of breath; R40.2421 Glasgow coma scale score 9-12, in the field [EMT or ambulance] | CPT/HCPCS: 36415; 80053; 81001; 83880; 85025; 87086 ==

== ENCOUNTER 2018-10-05 16:05 | Outpatient (CLI) | payer OTHER | END 2018-10-05 16:23 | disposition short-term general hospital (02) | LOC: AMBL 16:05 | PROVIDERS: ATTEND Family Medicine | DX: R53.83 Other fatigue (principal); R06.02 Shortness of breath; R41.82 Altered mental status, unspecified; R40.2421 Glasgow coma scale score 9-12, in the field [EMT or ambulance] ==